=== PATIENT | female | born 1955 | race Caucasian/White ===

== ENCOUNTER 2016-11-13 17:40 | Emergency (ER) | payer MEDICAID ==
--- NOTE | 2016-11-13 17:48 | ER Document Report ---
ED Medical Screen (RME) - General Stated Complaint: DIZZY Notes: elevated blood pressure at home and at urgent care headache, dizzy all day. headacche described as tension ditribution and consistent with her normal headache head CT and carotid doppler due for monday admits to chest pain yesterday lasting all day and resolved on its own I have greeted and performed a rapid initial assessment of this patient. A comprehensive ED assessment and evaluation of the patient, analysis of test results and completion of the medical decision making process will be conducted by additional ED providers. TRAVEL OUTSIDE OF THE [place] IN LAST 30 DAYS: No - Related Data Allergies/Adverse Reactions: cyclobenzaprine HCl [From Flexeril] Allergy (Intermediate, Verified 11/13/16 17: 44) Nausea codeine [Codeine] Adverse Reaction (Intermediate, Verified 11/13/16 17:44) Nausea morphine [Morphine] Adverse Reaction (Intermediate, Verified 11/13/16 17:44) Nausea tramadol HCl [From Ultram] Adverse Reaction (Intermediate, Verified 11/13/16 17: 44) Nausea Past Medical History - Past Medical History Cardiac Medical History: Reports: Hx Coronary Artery Disease, Hx Hypercholesterolemia, Hx Hypertension Denies: Hx Heart Attack Pulmonary Medical History: Denies: Hx Asthma, Hx Bronchitis, Hx COPD, Hx Pneumonia Neurological Medical History: Reports: Hx Cerebrovascular Accident - With right sided weakness. Denies: Hx Seizures Endocrine Medical History: Reports: Hx Diabetes Mellitus Type 2 GI Medical History: Reports: Hx Gastroesophageal Reflux Disease Musculoskeltal Medical History: Denies Hx Arthritis Psychiatric Medical History: Reports: Hx Depression Past Surgical History: Reports: Hx Cardiac Surgery - bypass, Hx Coronary Artery Bypass Graft, Hx Orthopedic Surgery - B TKA,, Hx Thyroid Surgery, Hx Vascular Surgery - Right carotid endarterectomy - Immunizations Hx Diphtheria, Pertussis, Tetanus Vaccination: Yes
--- NOTE | 2016-11-13 19:52 | ER Document Report ---
ED General - General Chief Complaint: High Blood Pressure Stated Complaint: DIZZY Notes: Patient is a 61-year-old female with past medical history of orthostatic hypotension, on medications to raise her blood pressure, chronic headaches, hyperlipidemia who is currently following with both neurology and cardiology for her highly fluctuating blood pressure as well as her chronic daily headaches who presents today with her daughter being concerned about her blood pressure being 150/103 at home. The patient denies any new or different symptoms today. She does note that she has had a dull, throbbing, intermittent bitemporal headache that has been ongoing for the past 2 months. It is not present at the time my assessment. She denies any associated weakness, numbness , altered mental status or vomiting. Nothing seems to improve the headache and it does resolve spontaneously. Nothing triggers the headaches. She is currently following with neurology for these headaches. She denies any chest pain, shortness of breath or pain rating to the arms jaw or back. At the time of my assessment she denies any symptoms at all and states she would like to go home. TRAVEL OUTSIDE OF THE [place] IN LAST 30 DAYS: No - Related Data Allergies/Adverse Reactions: cyclobenzaprine HCl [From Flexeril] Allergy (Intermediate, Verified 11/13/16 17: 44) Nausea codeine [Codeine] Adverse Reaction (Intermediate, Verified 11/13/16 17:44) Nausea morphine [Morphine] Adverse Reaction (Intermediate, Verified 11/13/16 17:44) Nausea tramadol HCl [From Ultram] Adverse Reaction (Intermediate, Verified 11/13/16 17: 44) Nausea Past Medical History - General Information source: Patient - Social History Smoking Status: Never Smoker Chew tobacco use (# tins/day): No Frequency of alcohol use: None Drug Abuse: None Lives with: Family Family History: Reviewed & Not Pertinent Patient has suicidal ideation: No Patient has homicidal ideation: No - Past Medical History Cardiac Medical History: Reports: Hx Coronary Artery Disease, Hx Hypercholesterolemia, Hx Hypertension Denies: Hx Heart Attack Pulmonary Medical History: Denies: Hx Asthma, Hx Bronchitis, Hx COPD, Hx Pneumonia Neurological Medical History: Reports: Hx Cerebrovascular Accident - With right sided weakness. Denies: Hx Seizures Endocrine Medical History: Reports: Hx Diabetes Mellitus Type 2 Renal/ Medical History: Denies: Hx Peritoneal Dialysis GI Medical History: Reports: Hx Gastroesophageal Reflux Disease Musculoskeltal Medical History: Denies Hx Arthritis Psychiatric Medical History: Reports: Hx Depression Past Surgical History: Reports: Hx Cardiac Surgery - bypass, Hx Coronary Artery Bypass Graft, Hx Orthopedic Surgery - B TKA,, Hx Thyroid Surgery, Hx Vascular Surgery - Right carotid endarterectomy - Immunizations Hx Diphtheria, Pertussis, Tetanus Vaccination: Yes Review of Systems - Review of Systems Notes: Constitutional: Negative for fever. HENT: Negative for sore throat. Eyes: Negative for visual changes. Cardiovascular: Negative for chest pain. Respiratory: Negative for shortness of breath. Gastrointestinal: Negative for abdominal pain, vomiting or diarrhea. Genitourinary: Negative for dysuria. Musculoskeletal: Negative for back pain. Skin: Negative for rash. Neurological: Positive for headaches, negative for weakness or numbness. 10 point ROS negative except as marked above and in HPI. Physical Exam - Vital signs Vitals: Resp Pulse Ox 15 98 11/13/16 18:46 11/13/16 18:46 Interpretation: Hypertensive Notes: PHYSICAL EXAMINATION: GENERAL: Well-appearing, well-nourished and in no acute distress. HEAD: Atraumatic, normocephalic. EYES: Pupils equal round and reactive to light, extraocular movements intact, sclera anicteric, conjunctiva are normal. ENT: nares patent, oropharynx clear without exudates. Moist mucous membranes. NECK: Normal range of motion, supple without lymphadenopathy LUNGS: Breath sounds clear to auscultation bilaterally and equal. No wheezes rales or rhonchi. HEART: Regular rate and rhythm without murmurs ABDOMEN: Soft, nontender, normoactive bowel sounds. No guarding, no rebound. No masses appreciated. EXTREMITIES: Normal range of motion, no pitting or edema. No cyanosis. NEUROLOGICAL: Face symmetric. Tongue protrudes midline. Extraocular motions intact. Pupils are 2 mm and equally reactive. Normal speech, normal gait. 5 out of 5 strength in both the distal and proximal upper and lower extremities bilaterally. Sensation is grossly intact throughout. Finger to nose testing normal. Pronator drift normal. PSYCH: Normal mood, normal affect. SKIN: Warm, Dry, normal turgor, no rashes or lesions noted. Course - Re-evaluation Re-evalutation: 11/13/16 19:49 Patient presents with primary concerns regarding her blood pressure reading in the 150s to 170s. Patient has had an intermittent headache for the past several months and is already following with neurology as well as cardiology for her blood pressure. The reason that the patient and her daughter came to the emergency room today was due to her blood pressure being read as 153 systolic at home. Patient here denies any complaints at the time of my assessment. States the headache that she has had is intermittent, bitemporal, and very similar to her prior chest headaches. I do not believe that she has had a subarachnoid hemorrhage, intraparenchymal bleed, or acute meningitis. Therefore we will not proceed with lumbar puncture. I do not believe the CT of the head that was obtained in triage was appropriate as patient does not have clinical symptoms to suggest with the above diagnoses which warrant this test. Chest x-ray was likewise clear although again it is uncertain as to why patient had this test obtained. Patient denies any chest pain and again contrary to triage note states that she is not had chest pain "for at least a week" and denies this complaint at this time. Therefore, I will not proceed with a workup for ACS, pulmonary embolus or aortic dissection as patient is asymptomatic at time of my evaluation. I recommended that she follow-up with her community development aide as well as neurologist regarding today's concerns.At this time will discharge with return precautions and follow-up recommendations. Verbal discharge instructions given a the bedside and opportunity for questions given. Medication warnings reviewed. Patient is in agreement with this plan and has verbalized understanding of return precautions and the need for primary care follow-up in the next 24-72 hours. - Vital Signs Vital signs: Temp Pulse Resp BP Pulse Ox 16 153/85 H 99 11/13/16 19:01 11/13/16 19:01 11/13/16 19:01 - Diagnostic Test Radiology reviewed: Image reviewed, Reports reviewed Radiology results interpreted by me: 11/13/16 19:52 Chest x-ray: No acute infiltrate CT head: No intrarenal bleed - EKG Interpretation by Me Additional EKG results interpreted by me: 11/13/16 19:52 Sinus rhythm. Rate 75. No ST elevations or depressions. QTC is 496. Discharge - Discharge Clinical Impression: Essential hypertension Headache Qualifiers: Headache type: unspecified Headache chronicity pattern: episodic headache Intractability: not intractable Qualified Code(s): R51 - Headache Condition: Good Disposition: HOME, SELF-CARE Additional Instructions: You were seen today for blood pressure that was high. This is a long-term risk factor for multiple medical problems including heart attack and stroke. However, the blood pressure in of itself will not cause you to have an acute stroke or heart attack over the course of just several days or weeks. You need to have a gradual reduction of your blood pressure back to normal levels over the next several months in conjunction with your primary care physician. You may need discuss coming off the medication that you used to raise her blood pressure with your community development aide. Return if you develop a persistent or different type of headache, weakness, numbness, chest pain, pass out, or have any other symptoms that are concerning to you. Referrals: ANDRA HERRING MD [Primary Care Provider] - Follow up as needed
[2016-11-13 20:03] VITALS: BP 153/85
--- NOTE | 2016-11-13 20:47 | EKG REPORT ---
SEVERITY:- ABNORMAL ECG - SINUS RHYTHM NONSPECIFIC T ABNORMALITIES, DIFFUSE LEADS BORDERLINE PROLONGED QT INTERVAL : Confirmed by: Shannan Mccormick MD 13-Nov-2016 20:46:43
== END 2016-11-13 20:04 | disposition home or self-care (01) ==
LOC: ER 17:40
DX: I10 Essential (primary) hypertension (principal); R42 Dizziness and giddiness; R51 Headache; I25.10 Atherosclerotic heart disease of native coronary artery without angina pectoris; E78.00 Pure hypercholesterolemia, unspecified; I69.951 Hemiplegia and hemiparesis following unspecified cerebrovascular disease affecting right dominant side; E11.9 Type 2 diabetes mellitus without complications; Z88.6 Allergy status to analgesic agent; Z95.1 Presence of aortocoronary bypass graft
CPT/HCPCS: 70450; 71020; 93005; 93010; 99284

== ENCOUNTER 2017-06-25 16:21 | Emergency (ER) | payer MEDICAID ==
--- NOTE | 2017-06-25 17:27 | ER Document Report ---
ED Fall - General Chief Complaint: Fall Injury Stated Complaint: FALL/LEG PAIN Time Seen by Provider: 06/25/17 17:05 Mode of Arrival: Wheelchair Information source: Patient Notes: 62-year-old female presents to ED for complaint of pain to her bilateral knees pelvis and lower abdomen. She states she does not know why she fell but she came to on the floor with her daughter and her boyfriend laughing at her she states she fell forward and she hit the lizard cage on the way down. She thinks she might have missed a step but she does not know why she fell. She has a history of coronary bypass surgery and a stroke in the past. She denies any complaint of chest or head pain at this time she denies any nausea or vomiting. Crossing Supervisor are equal patient is able to stand by herself. TRAVEL OUTSIDE OF THE [place] IN LAST 30 DAYS: No - HPI Occurred: Just prior to arrival Where: Home, Indoors Context: Fell from standing Associated symptoms: Difficulty walking, Other - States she does not remember falling but she woke up on the floor. The next sentence she stated that she fell forward hitting the lizard cage. Location of injury/pain: Hip, Knee, Pelvic Quality of pain: Achy, Sharp Severity: Moderate Pain Level: 3 - Related data Allergies/Adverse Reactions: cyclobenzaprine HCl [From Flexeril] Allergy (Intermediate, Verified 11/13/16 17: 44) Nausea codeine [Codeine] Adverse Reaction (Intermediate, Verified 11/13/16 17:44) Nausea morphine [Morphine] Adverse Reaction (Intermediate, Verified 11/13/16 17:44) Nausea tramadol HCl [From Ultram] Adverse Reaction (Intermediate, Verified 11/13/16 17: 44) Nausea Past Medical History - General Information source: Patient - Social History Smoking Status: Never Smoker Cigarette use (# per day): No Chew tobacco use (# tins/day): No Smoking Education Provided: No Frequency of alcohol use: None Drug Abuse: None Lives with: Family Family History: Reviewed & Not Pertinent Patient has suicidal ideation: No Patient has homicidal ideation: No - Past Medical History Cardiac Medical History: Reports: Hx Coronary Artery Disease, Hx Hypercholesterolemia, Hx Hypertension Pulmonary Medical History: Reports: None EENT Medical History: Reports: None Neurological Medical History: Reports: Hx Cerebrovascular Accident - With right sided weakness Endocrine Medical History: Reports: Hx Diabetes Mellitus Type 2 Renal/ Medical History: Reports: None Malignancy Medical History: Reports: None GI Medical History: Reports: Hx Gastroesophageal Reflux Disease Musculoskeltal Medical History: Reports Hx Musculoskeletal Deformity, Reports Hx Musculoskeletal Trauma Skin Medical History: Reports None Psychiatric Medical History: Reports: Hx Depression Traumatic Medical History: Reports: None Infectious Medical History: Reports: None Past Surgical History: Reports: Hx Cardiac Surgery - bypass, Hx Coronary Artery Bypass Graft, Hx Orthopedic Surgery - B TKA,, Hx Thyroid Surgery, Hx Vascular Surgery - Right carotid endarterectomy - Immunizations Hx Diphtheria, Pertussis, Tetanus Vaccination: Yes Review of Systems - Review of Systems Constitutional: No symptoms reported EENT: No symptoms reported Cardiovascular: No symptoms reported Respiratory: No symptoms reported Gastrointestinal: Abdominal pain Genitourinary: No symptoms reported Female Genitourinary: No symptoms reported Musculoskeletal: Joint pain - bilateral knee pain, hip pain Skin: No symptoms reported Hematologic/Lymphatic: No symptoms reported Neurological/Psychological: Lost consciousness - Thanks she does not know if she lost consciousness or not she does not remember the fall but she woke up on the floor with her daughter and her boyfriend laughing at her -: Yes All other systems reviewed and negative Physical Exam - Vital signs Vitals: Temp Pulse Resp BP Pulse Ox 97.7 F 73 20 108/56 L 98 06/25/17 16:29 06/25/17 16:29 06/25/17 16:29 06/25/17 16:29 06/25/17 16:29 Interpretation: Normal - General General appearance: Appears well, Alert - HEENT Head: Normocephalic, Atraumatic Eyes: Normal Pupils: PERRL - Respiratory Respiratory status: No respiratory distress Chest status: Nontender Breath sounds: Normal Chest palpation: Normal - Cardiovascular Rhythm: Regular Heart sounds: Normal auscultation Murmur: No - Abdominal Inspection: Normal Distension: No distension Bowel sounds: Normal Tenderness: Tender - Suprapubic and pelvic area Organomegaly: No organomegaly - Back Back: Normal, Nontender - Extremities General upper extremity: Normal inspection, Nontender, Normal color, Normal ROM , Normal temperature General lower extremity: Normal color, Normal ROM, Normal temperature, Normal weight bearing. No: Major's sign Hip: Tender. No: Abrasion, Deformity, Dislocation, Ecchymosis, Instability, Laceration, Pain with ROM, Unable to bear weight Knee: Tender, Pain with ROM, Patellar tendon intact, Tender joint line, Other - Cars to both knees. No: Abrasion, Deformity, Dislocation, Drawer's test instability, Ecchymosis, Instability, Joint effusion, Laxity with varus stress, Popliteal fossa tender, Unable to bear weight - Neurological Neuro grossly intact: Yes Cognition: Normal Orientation: AAOx4 [place] Coma Scale Eye Opening: Spontaneous [place] Coma Scale Verbal: Oriented [place] Coma Scale Motor: Obeys Commands [place] Coma Scale Total: 15 Speech: Normal Motor strength normal: LUE, RUE, LLE, RLE Sensory: Normal - Psychological Associated symptoms: Normal affect, Normal mood - Skin Skin Temperature: Warm Skin Moisture: Dry Skin Color: Normal Course - Re-evaluation Re-evalutation: 06/25/17 18:[address] Discussed x-ray CT and labs with patient and written reports given the patient to follow-up with her primary doctor. There are no acute changes on x-rays or CTs. She has some small nonobstructing kidney stones bilateral, she has gallstones with no signs of cholecystitis and no upper abdominal pain no nausea and vomiting. She has no changes on her head CT or on either knee x-ray. Her urine does not show any signs of a urinary tract infection. Her chemistry is within normal limits except for her glucose was a little elevated. She will be discharged home with some Tylenol and instructions to follow-up with her primary doctor. Her daughter has been called and informed that she is ready to go home. - Vital Signs Vital signs: Temp Pulse Resp BP Pulse Ox 97.7 F 73 20 108/56 L 98 06/25/17 16:29 06/25/17 16:29 06/25/17 16:29 06/25/17 16:29 06/25/17 16:29 - Laboratory Result Diagrams: 06/25/17 17:25 06/25/17 17:25 Laboratory results interpreted by me: 06/25/17 06/25/17 17:25 17:25 RBC 3.17 L Hgb 10.0 L Hct 29.1 L Est GFR (Non-Af Amer) 49 L Glucose 132 H - Diagnostic Test Radiology reviewed: Image reviewed, Reports reviewed Discharge - Discharge Clinical Impression: Contusion of knee with skin surface intact, Pelvic pain in female Fall Qualifiers: Encounter type: initial encounter Qualified Code(s): W19.XXXA - Unspecified fall, initial encounter Condition: Stable Disposition: HOME, SELF-CARE Additional Instructions: CONTUSION: Your injury has resulted in a contusion -- a crushing of the deep tissues. No injury to important structures was detected during the physician's exam. Contusions vary in the amount of pain they cause, and in the length of time required for healing. Typically, the area will become bruised, and will remain painful to touch for two or three weeks. However, most patients are back to working and playing within a few days. After the initial period of rest and cold-packs, your symptoms (together with the doctor's recommendations) will determine how rapidly you can get back to full activity. Usually this means "do what feels okay, but don't do things that hurt." If re-examination was recommended, it's important to follow up as instructed. Call the doctor or return any time if pain increases, if swelling becomes severe, if you develop numbness or weakness in an injured extremity, or if any other alarming symptoms occur. Kidney Stone You have a nonobstructing in the stone that is not causing you any problems at this time he will need to follow-up with your primary doctor concerning this to monitor this. You also have gallstones that are not causing you any problem at this time. You denied any pain in this area. You have denied any nausea and vomiting at this time. You will need to follow-up with your primary doctor to monitor this condition. Your x-rays do not show any other acute abnormalities at this time. I have given you a copy of your CAT scans of your head and abdomen and your x-rays of your knees. Please take your lab results as well as your CT and x-rays with you to your next follow-up appointment with your primary doctor. Please be cautious when walking around in the house and do not trip over the step and hit the lizard cage. USE OF TYLENOL (ACETAMINOPHEN): Acetaminophen may be taken for pain relief or fever control. It's much safer than aspirin, offering a wider range of "safe" dosages. It is safe during . Some brand names are Tylenol, Panadol, Datril, Anacin 3, Tempra, and Liquiprin. Acetaminophen can be repeated every four hours. The following are maximum recommended dosages: WEIGHT Dose Drops Elixir Chewable( 80mg) (LBS.) drprs=droppers tsp=teaspoon 6 40 mg 0.4 ml (1/2) 6-11 80 mg 0.8 ml (full) tsp 1 tab 12-16 120 mg 1 1/2 drprs 3/4 tsp 1 1/2 tabs 17-23 160 mg 2 drprs 1 tsp 2 tabs 24-30 240 mg 3 drprs 1 1/2 tsp 3 tabs 30-35 320 mg 2 tsp 4 tabs 36-41 360 mg 2 1/4 tsp 4 1/2 tabs 42-47 400 mg 2 1/2 tsp 5 tabs 48-53 480 mg 3 tsp 6 tabs 54-59 520 mg 3 1/4 tsp 6 1/2 tabs 60-64 560 mg 3 1/2 tsp 7 tabs 65-70 600 mg 3 3/4 tsp 7 1/2 tabs 71-76 640 mg 4 tsp 8 tabs 77-82 720 mg 4 1/2 tsp 9 tabs 83-88 800 mg 5 tsp 10 tabs >89 pounds or adults 650 mg to 900 mg Acetaminophen can be repeated every four hours. Maximum dose not to exceed 4000 mg a day. These maximum recommended dosages are slightly higher than the dosages written on the product container, but these dosages are very safe and below the toxic dosage for acetaminophen. FOLLOW-UP CARE: If you have been referred to a physician for follow-up care, call the physician s office for an appointment as you were instructed or within the next two days. If you experience worsening or a significant change in your symptoms, notify the physician immediately or return to the Emergency Department at any time for re-evaluation. Referrals: JULIAN RODRÍGUEZ PA-C [Primary Care Provider] - Follow up as needed
[2017-06-25 17:34] LABS: ABSOLUTE EOSINOPHILS # (AUTO) 0.3 10^3/uL (0.0-0.6); ABSOLUTE LYMPHOCYTES (AUTO) 1.6 10^3/uL (0.5-4.7); ABSOLUTE MONOCYTES (AUTO) 0.5 10^3/uL (0.1-1.4); ABSOLUTE NEUT (AUTO) 5.1 10^3/uL (1.7-8.2); BASOPHILS % (AUTO) 0.5 % (0-2); EOSINOPHILS % (AUTO) 4.3 % (0-6); HEMATOCRIT 29.1 % (36.0-47.0); HGB HCT DIFFERENCE 0.9; LYMPHOCYTES % (AUTO) 20.9 % (13-45); MEAN CORPUSCULAR HEMOGLOBIN 31.7 pg (27.0-33.4); MEAN CORPUSCULAR HGB CONC 34.6 g/dL (32.0-36.0); MEAN CORPUSCULAR VOLUME 92 fl (80-97); MONOCYTES % (AUTO) 7.1 % (3-13); RED BLOOD COUNT 3.17 10^6/uL (3.72-5.28); RED CELL DISTRIBUTION WIDTH 13.5 % (11.5-14.0); SEGMENTED NEUTROPHILS % (AUTO) 67.2 % (42-78); WHITE BLOOD COUNT 7.6 10^3/uL (4.0-10.5)
[2017-06-25 17:55] LABS: ALANINE AMINOTRANSFERASE 47 U/L (9-52); ALBUMIN 4.3 g/dL (3.5-5.0); ALKALINE PHOSPHATASE 61 U/L (38-126); ANION GAP 12 (5-19); ASPARTATE AMINO TRANSFERASE 30 U/L (14-36); BILIRUBIN,DIRECT 0.4 mg/dL (0.0-0.4); BILIRUBIN,TOTAL 0.5 mg/dL (0.2-1.3); BLOOD UREA NITROGEN 20 mg/dL (7-20); CALCIUM 9.5 mg/dL (8.4-10.2); CARBON DIOXIDE 28 mmol/L (22-30); CHLORIDE 103 mmol/L (98-107); CREATININE RESULT 1.12 mg/dL (0.52-1.25); GLUCOSE 132 mg/dL (75-110); POTASSIUM 4.4 mmol/L (3.6-5.0); SODIUM 142.8 mmol/L (137-145)
[2017-06-25 18:04] LABS: APPEARANCE,URINE CLEAR; BILIRUBIN,URINE NEGATIVE (NEGATIVE); GLUCOSE, URINE NEGATIVE (NEGATIVE); KETONES,URINE NEGATIVE (NEGATIVE); LEUKOCYTE ESTERASE,URINE NEGATIVE (NEGATIVE); NITRITE,URINE NEGATIVE (NEGATIVE); PROTEIN,URINE NEGATIVE (NEGATIVE); URINE SPECIFIC GRAVITY 1.008; UROBILINOGEN,URINE NEGATIVE mg/dL (<2.0)
--- NOTE | 2017-06-25 18:22 | RADIOLOGY REPORT (SQ) ---
EXAM DESCRIPTION: CT HEAD WITHOUT COMPLETED DATE/TIME: 06/25/2017 6:08 pm REASON FOR STUDY: fall states does not remember why COMPARISON: 11/13/2016. TECHNIQUE: Axial images acquired through the brain without intravenous contrast. Images reviewed wi th bone, brain and subdural windows. Images stored on PACS. All CT scanners at this facility use dose modulation, iterative reconstruction, and/or weight based d osing when appropriate to reduce radiation dose to as low as reasonably achievable (ALARA). [facility]: Dose Right [facility]: CareDose [facility]: Dose Right [facility]: Teradose 4D [facility]: [facility] RADIATION DOSE: Up-to-date CT equipment and radiation dose reduction techniques were employed. CTDIv ol: 64.6 mGy. DLP: 1163 mGy-cm.mGy. LIMITATIONS: None. FINDINGS: VENTRICLES: Prominent. CEREBRUM: No masses. No hemorrhage. No midline shift. Areas of low density in the white matter mos t likely due to chronic micro-vascular ischemic change. Old infarct in the left cerebral hemisphere with prominent encephalomalacia. No evidence for acute infarction. CEREBELLUM: No masses. No hemorrhage. No alteration of density. No evidence for acute infarction. EXTRAAXIAL SPACES: Age-related involutional change. No fluid collections. No masses. ORBITS AND GLOBE: No intra- or extraconal masses. Normal contour of globe without masses. CALVARIUM: No fracture. PARANASAL SINUSES: No fluid or mucosal thickening. SOFT TISSUES: No mass or hematoma. OTHER: No other significant finding. IMPRESSION: CHRONIC CHANGES OF ATROPHY AND MICROVASCULAR ISCHEMIA. OLD INFARCT IN THE LEFT CEREBRAL HEMISPHERE. NO ACUTE PROCESS. EVIDENCE OF ACUTE STROKE: NO. TECHNICAL DOCUMENTATION: JOB ID: [id number] Quality ID # [id number]: Final reports with documentation of one or more dose reduction techniques (e.g., Au tomated exposure control, adjustment of the mA and/or kV according to patient size, use of iterative reconstruction technique) 2010 [email or web address]- All Rights Reserved
--- NOTE | 2017-06-25 18:22 | RADIOLOGY REPORT (SQ) ---
EXAM DESCRIPTION: KNEE LEFT 4 VIEW COMPLETED DATE/TIME: 06/25/2017 6:08 pm REASON FOR STUDY: fall pain knee pelvic and abdomen COMPARISON: None. NUMBER OF VIEWS: Four views. TECHNIQUE: AP, lateral, and both oblique radiographic images acquired of the left knee. LIMITATIONS: None. FINDINGS: MINERALIZATION: Normal. BONES: No acute fracture or dislocation. Intact knee prosthesis. No worrisome bone lesions. JOINT: No effusion. SOFT TISSUES: No soft tissue swelling. No radio-opaque foreign body. OTHER: No other significant finding. IMPRESSION: INTACT KNEE PROSTHESIS. NO RADIOGRAPHIC EVIDENCE OF ACUTE INJURY. TECHNICAL DOCUMENTATION: JOB ID: [id number] [email or web address]- All Rights Reserved
--- NOTE | 2017-06-25 18:23 | RADIOLOGY REPORT (SQ) ---
EXAM DESCRIPTION: KNEE RIGHT 4 VIEWS COMPLETED DATE/TIME: 06/25/2017 6:08 pm REASON FOR STUDY: fall pain knee pelvic and abdomen COMPARISON: None. NUMBER OF VIEWS: Four views. TECHNIQUE: AP, lateral, and both oblique radiographic images acquired of the right knee. LIMITATIONS: None. FINDINGS: MINERALIZATION: Normal. BONES: No acute fracture or dislocation. Intact knee prosthesis. No worrisome bone lesions. JOINT: No effusion. SOFT TISSUES: No soft tissue swelling. No radio-opaque foreign body. OTHER: No other significant finding. IMPRESSION: INTACT KNEE PROSTHESIS. NO RADIOGRAPHIC EVIDENCE OF ACUTE INJURY. TECHNICAL DOCUMENTATION: JOB ID: [id number] [email or web address]- All Rights Reserved
--- NOTE | 2017-06-25 18:38 | RADIOLOGY REPORT (SQ) ---
EXAM DESCRIPTION: CT ABD/PELVIS NO ORAL OR IV COMPLETED DATE/TIME: 06/25/2017 6:08 pm REASON FOR STUDY: fall pain knee pelvic and abdomen COMPARISON: None. TECHNIQUE: CT scan of the abdomen and pelvis performed without intravenous or oral contrast. Images reviewed with lung, soft tissue, and bone windows. Reconstructed coronal and sagittal MPR images revi ewed. All images stored on PACS. All CT scanners at this facility use dose modulation, iterative reconstruction, and/or weight based d osing when appropriate to reduce radiation dose to as low as reasonably achievable (ALARA). [facility]: Dose Right [facility]: CareDose [facility]: Dose Right [facility]: Teradose 4D [facility]: Smart [employer] RADIATION DOSE: Up-to-date CT equipment and radiation dose reduction techniques were employed. CTDIv ol: 14.4 mGy. DLP: 785 mGy-cm.mGy. LIMITATIONS: None. FINDINGS: LOWER CHEST: No significant findings. No nodules or infiltrates. NON-CONTRASTED LIVER, SPLEEN, ADRENALS: Evaluation limited by lack of IV contrast. No identified sign ificant masses. PANCREAS: No masses. No peripancreatic inflammatory changes. GALLBLADDER: Gallstones. No inflammatory changes to suggest cholecystitis. RIGHT KIDNEY AND URETER: No suspicious masses. Assessment limited by lack of IV contrast. Tiny gt ceal calculus. No hydronephrosis or hydroureter. LEFT KIDNEY AND URETER: No suspicious masses. Assessment limited by lack of IV contrast. Tiny calyc eal calculus. No hydronephrosis or hydroureter. AORTA AND RETROPERITONEUM: No aneurysm. No retroperitoneal masses or adenopathy. BOWEL AND PERITONEAL CAVITY: No obvious masses or inflammatory changes. No free fluid. APPENDIX: Not visualized. PELVIS, BLADDER, AND ABDOMINAL WALL:No abnormal masses. No free fluid. Bladder normal. BONES: No significant findings. OTHER: No other significant finding. IMPRESSION: 1. GALLSTONES. NO EVIDENCE OF CHOLECYSTITIS. 2. TINY NONOBSTRUCTING CALYCEAL CALCULI IN BOTH KIDNEYS. 3. NO OTHER SIGNIFICANT OR ACUTE PROCESS IN THE ABDOMEN OR PELVIS. COMMENT: Quality ID # [id number]: Final reports with documentation of one or more dose reduction techniques (e.g., Automated exposure control, adjustment of the mA and/or kV according to patient size, use of iterative reconstruction technique) TECHNICAL DOCUMENTATION: JOB ID: [id number] [employer]- All Rights Reserved
[2017-06-25 19:04] VITALS: BP 110/62
== END 2017-06-25 19:04 | disposition home or self-care (01) ==
LOC: ER 16:21
DX: S80.00XA Contusion of unspecified knee, initial encounter (principal); W10.9XXA Fall (on) (from) unspecified stairs and steps, initial encounter; Y92.009 Unspecified place in unspecified non-institutional (private) residence as the place of occurrence of the external cause; M25.561 Pain in right knee; M25.562 Pain in left knee; R10.2 Pelvic and perineal pain; M25.559 Pain in unspecified hip; R41.3 Other amnesia; N20.0 Calculus of kidney; K80.20 Calculus of gallbladder without cholecystitis without obstruction; I25.10 Atherosclerotic heart disease of native coronary artery without angina pectoris; I10 Essential (primary) hypertension; E11.9 Type 2 diabetes mellitus without complications; Z96.653 Presence of artificial knee joint, bilateral; Z86.73 Personal history of transient ischemic attack (TIA), and cerebral infarction without residual deficits; Z95.1 Presence of aortocoronary bypass graft; Z88.8 Allergy status to other drugs, medicaments and biological substances
CPT/HCPCS: 36415; 51701; 70450; 74176; 80053; 81001; 85025; 99284

== ENCOUNTER → 2017-07-25 | Outpatient (CLI) | payer MEDICAID ==
[2017-07-25 09:19] LABS: ABSOLUTE EOSINOPHILS # (AUTO) 0.3 10^3/uL (0.0-0.6); ABSOLUTE LYMPHOCYTES (AUTO) 1.4 10^3/uL (0.5-4.7); ABSOLUTE MONOCYTES (AUTO) 0.4 10^3/uL (0.1-1.4); ABSOLUTE NEUT (AUTO) 3.3 10^3/uL (1.7-8.2); BASOPHILS % (AUTO) 0.8 % (0-2); EOSINOPHILS % (AUTO) 5.8 % (0-6); HEMATOCRIT 30.6 % (36.0-47.0); HEMOGLOBIN 10.5 g/dL (12.0-15.5); HGB HCT DIFFERENCE 0.9; MEAN CORPUSCULAR HEMOGLOBIN 31.1 pg (27.0-33.4); MEAN CORPUSCULAR HGB CONC 34.3 g/dL (32.0-36.0); MEAN CORPUSCULAR VOLUME 91 fl (80-97); MONOCYTES % (AUTO) 6.5 % (3-13); RED BLOOD COUNT 3.38 10^6/uL (3.72-5.28); RED CELL DISTRIBUTION WIDTH 13.5 % (11.5-14.0); SEGMENTED NEUTROPHILS % (AUTO) 60.9 % (42-78); WHITE BLOOD COUNT 5.5 10^3/uL (4.0-10.5)
--- NOTE | 2017-07-25 09:40 | RADIOLOGY REPORT (SQ) ---
EXAM DESCRIPTION: CHEST PA/LATERAL COMPLETED DATE/TIME: 07/25/2017 9:15 am REASON FOR STUDY: PRE-OP COMPARISON: Chest films 01/19/2015, 01/23/2016, 11/13/2016 CT angio chest 11/15/2007 EXAM PARAMETERS: NUMBER OF VIEWS: two views TECHNIQUE: Digital Frontal and Lateral radiographic views of the chest acquired. RADIATION DOSE: NA LIMITATIONS: none FINDINGS: LUNGS AND PLEURA: No opacities, masses or pneumothorax. No pleural effusion. MEDIASTINUM AND HILAR STRUCTURES: No masses or contour abnormalities. HEART AND VASCULAR STRUCTURES: Heart normal size. No evidence for failure. BONES: Old sternotomy for CABG. HARDWARE: None in the chest. OTHER: No other significant finding. IMPRESSION: NO SIGNIFICANT RADIOGRAPHIC FINDING IN THE CHEST. TECHNICAL DOCUMENTATION: JOB ID: [id number] [employer]- All Rights Reserved
[2017-07-25 09:48] LABS: ANION GAP 11 (5-19); BLOOD UREA NITROGEN 15 mg/dL (7-20); CALCIUM 9.6 mg/dL (8.4-10.2); CARBON DIOXIDE 29 mmol/L (22-30); CHLORIDE 105 mmol/L (98-107); CREATININE RESULT 0.89 mg/dL (0.52-1.25); GLUCOSE 104 mg/dL (75-110); POTASSIUM 4.5 mmol/L (3.6-5.0); SODIUM 144.9 mmol/L (137-145)
[2017-07-25 10:40] LABS: APPEARANCE,URINE CLEAR; BILIRUBIN,URINE NEGATIVE (NEGATIVE); GLUCOSE, URINE NEGATIVE (NEGATIVE); KETONES,URINE NEGATIVE (NEGATIVE); LEUKOCYTE ESTERASE,URINE NEGATIVE (NEGATIVE); NITRITE,URINE NEGATIVE (NEGATIVE); PROTEIN,URINE NEGATIVE (NEGATIVE); URINE SPECIFIC GRAVITY 1.008; UROBILINOGEN,URINE NEGATIVE mg/dL (<2.0)
--- NOTE | 2017-07-25 13:41 | EKG REPORT ---
SEVERITY:- NORMAL ECG - SINUS RHYTHM : Confirmed by: Capo Butterfield MD 25-Jul-2017 13:39:56
== END ==
LOC: OD 08:17
PROVIDERS: ATTEND Orthopaedic Surgery
DX: Z01.818 Encounter for other preprocedural examination (principal)
CPT/HCPCS: 36415; 71020; 80048; 81001; 83036; 85025; 93005; 93010

== ENCOUNTER 2017-08-10 10:46 | Day surgery (SDC) | payer MEDICAID ==
[~2017-08-10 10:46] MED LIST: CEFAZOLIN 2 GM/D5W RTU 2 GM/50 ML RTUPB IV PRN; GLYCOPYRROLATE INJ 0.4 MG/2 ML VIAL ONE; LIDOCAINE 0.5% INJ-PF (5 MG/ML) 50 ML SDV SUBCUT PRN; NORMAL SALINE 1000 ML 1,000 ML IV PRN; ROCURONIUM BROMIDE INJ 50 MG/5 ML VIAL IV ONE; SUCCINYLCHOLINE CHLORIDE INJ 200 MG/10 ML VIAL ONE
[2017-08-10] MEDS ORDERED: BUPIVACAINE HCL 0.5 % INJ/PF 30 ML SDV ONE ×2 (10:47→16:32)
[2017-08-10] MEDS ORDERED: EPINEPHRINE INJ/PF 1 MG/1 ML AMPULE ONE (10:47)
[2017-08-10] MEDS ORDERED: FENTANYL CITRATE INJ/PF 100 MCG/2 ML AMPUL ONE (13:46)
[2017-08-10] MEDS ORDERED: MIDAZOLAM 2 MG/2 ML INJ ONE (13:47)
[2017-08-10] MEDS ORDERED: ONDANSETRON HCL INJ/PF 4 MG/2 ML SDV ONE (13:47)
[2017-08-10] MEDS ORDERED: HYDROMORPHONE HCL INJ/PF 2 MG/ML AMPULE ONE (13:47)
[2017-08-10] MEDS ORDERED: PROPOFOL INJ 200 MG/20 ML VIAL IV ONE (13:47)
[2017-08-10] MEDS ORDERED: DEXAMETHASONE SOD PHOSPHATE INJ 4 MG/1 ML VIAL ONE (13:47)
[2017-08-10] MEDS ORDERED: ACETAMINOPHEN 100 ML IV ONE (13:48)
[2017-08-10] MEDS ORDERED: MEPERIDINE HCL/PF INJ 25 MG/1 ML DISP.SYRIN IV PRN (15:31)
[2017-08-10] MEDS ORDERED: OXYCODONE-ACETAMINOPHEN 5-325 MG TABLET PO PRN ×4 (15:31→16:46)
[2017-08-10] MEDS ORDERED: PROMETHAZINE HCL INJ 25 MG/1 ML VIAL IV PRN ×2 (15:31)
[2017-08-10] MEDS ORDERED: DIPHENHYDRAMINE HCL 50 MG/ML VIAL IV PRN (15:31)
[2017-08-10] MEDS ORDERED: FENTANYL CITRATE INJ/PF 100 MCG/2 ML AMPUL IV PRN ×3 (15:31)
--- NOTE | 2017-08-10 16:44 | Operative Report ---
Operative Report DATE OF SURGERY: 08/10/17 PREOPERATIVE DIAGNOSIS: Right shoulder rotator cuff tear and subluxing biceps POSTOPERATIVE DIAGNOSIS: same OPERATION: Right shoulder arthroscopic rotator cuff repair and biceps tenodesis SURGEON: LUCA HIGHTOWER ANESTHESIA: GA TISSUE REMOVED OR ALTERED: Portion of the long head of the biceps COMPLICATIONS: None ESTIMATED BLOOD LOSS: Less than 20 mL INTRAOPERATIVE FINDINGS: As above PROCEDURE: IMPLANTS: 5.5 by composite corkscrews 2. DESCRIPTION OF PROCEDURE: Patient was brought to the operating room placed in supine position. After successfully induced and intubated the patient patient was placed in the beachchair position the head and endotracheal tube was secured appropriately. The right shoulder was prepped and draped in a normal surgical fashion. A timeout was done identifying the right shoulder as the correct site. After inflating the glenohumeral joint with sterile saline solution an 11 blade was used to establish the posterior portal. The arthroscope was introduced and return of fluid was seen showing that we successfully penetrated the glenohumeral joint. With the use of spinal needle we're able to fatmata the anterior portal and using an 11 blade able to establish anterior portal. A cannula was introduced through the anterior portal. At this point diagnostic scope was done. Patient had a type II SLAP tear with subluxing of the long head of the biceps. Also had partial tearing of the biceps on the surface rubbing against the humeral head. Patient had a full- thickness tear of the supraspinatus and portion of the infraspinatus. A lateral portal was established 11 blade. 4.0mm shaver was introduced and was used to prepare the tear and the frontal bone for preparation of anchor placement. Once I was satisfied with the preparation I then redirected my scope into the subacromial space. After doing a formal bursectomy was able to expose the rotator cuff tear. A percutaneous incision was then just adjacent to the acromion on the lateral aspect. Through this percutaneous hole the awl was used to prepare the hole for an anchor. [place] was percutaneously sent flushed with the bone just adjacent to the articular margin.[Same steps were taken for placement of our second anchor more posteriorly. Sutures were passed through the anterior portal for proper suture management. With the use of the scorpion and I proceeded to pass the sutures through the rotator cuff tendon with proper suture management was able to pass the strands either through percutaneous hole or the anterior portal. Once I was satisfied with placement of all my sutures I then proceeded to do my arthroscopic knots. At this point the strands were used to do our lateral row. Bicomposite show out was used and the lateral aspect of the humerus was then cleaned off with a shaver and electrocautery. Once identified once I was placement I proceeded to use my awl to do my hole. I was successful to place 1 of my swivel locks with some of the strands do a lateral row. My posterior swivel lock did not take and despite placing the anchor sutures were loose and I needed to proceed to use arthroscopic cutters to cut thumb and leave a small limb. Remaining strands were cut with the arthroscopic cutter. Final pictures were taking showing my repair. At this point fluid from the shoulder was removed camera and instruments were all removed. I proceeded to do my subpectoralis biceps tenodesis by doing a 1 inch incision just adjacent to the deltopectoral aspect of the anterior shoulder. Dissection was done bluntly with a Metzenbaum scissors and after splitting the fascial tissue overlying the biceps was able to put the biceps in the bicipital groove and pull it out of my incision with a 90 clamp. I proceeded to use fiber loop to secure 2 cm at the musculotendinous junction and tendon. The remaining tendon was cut. I used a 4 mm spade tip guidepin to drill into the bone after placing small Homans to expose the humerus and base of the bicipital groove. I left the pin inside the canal and passed the 2 limbs of the Fiber[employer] through the blind once I secured and since the button down I pulled the spade tip guidepin and placed my button inside the medullary canal and flipped it and secured the biceps onto the face of the humerus. I did half hitch knots to try and secure it further. I used black candle scissors to cut and leave the limb. I used 0 Vicryl to approximate the subcutaneous tissue 2-0 Vicryl to approximate the dermis and 3-0 nylon for the skin I proceeded to close my portal sites with 3-0 nylon. Xeroform 4 x 4 dressing followed by ABDs pads and Medipore tape was applied. Patient was placed in a sling and returned to supine position where he was successfully extubated and taken to PACU in stable condition.
--- NOTE | 2017-08-10 16:46 | PDOC DISCHARGE SUMMARY ---
Discharge Summary (SDC) - Discharge Final Diagnosis: Status post right shoulder rotator cuff repair and subpectoralis biceps tenodesis Date of Surgery: 08/10/17 Discharge Date: 08/10/17 Condition: Good Treatment or Instructions: Patient is instructed to follow up in 10-14 days. Patient instructed to remove dressing in 4 days then can shower and apply Band- Aids as needed. Patient to wear sling for comfort but okay to remove for shower and pendulum exercises. Pendulum exercises are instructed to be done 3 times a day ideally with breakfast, lunch, dinners and showers. Patient instructed to call if there is any signs of redness or drainage fevers or chills. Prescriptions: Oxycodone HCl/Acetaminophen [Percocet 5-325 mg Tablet] 1 - 2 tab PO ASDIR PRN # 60 tablet PRN Reason: Referrals: JULIAN RODRÍGUEZ PA-C [Primary Care Provider] - Respiratory Treatments at Home: Deep Breathing/Coughing Discharge Activity: No Lifting/Push/Pulling, Walk Frequently - Patient Report the Following to Your Physician Immediately: Shortness of Breath, Vomiting, Increase in Pain, Fever over 101 Degrees, Unusual Bleeding, Redness, Swelling, Warmth, Increased Soreness, Drainage-Yellow - E, Drainage-Kirby - 1, Drainage-Green
[2017-08-10 19:55] VITALS: BP 107/58
== END 2017-08-10 19:30 | disposition home or self-care (01) ==
LOC: OROUT 10:46
PROVIDERS: ATTEND Orthopaedic Surgery
PROC: 0LM14ZZ Reattachment of Right Shoulder Tendon, Percutaneous Endoscopic Approach (ICD-10-PCS; 2017-08-10)
PROC: 0LM30ZZ Reattachment of Right Upper Arm Tendon, Open Approach (ICD-10-PCS; principal; 2017-08-10 12:30)
DX: S43.39 Subluxation and dislocation of other parts of shoulder girdle (principal); S43.431D Superior glenoid labrum lesion of right shoulder, subsequent encounter; X58.XXXD Exposure to other specified factors, subsequent encounter; M75.122 Complete rotator cuff tear or rupture of left shoulder, not specified as traumatic; E78.5 Hyperlipidemia, unspecified; I10 Essential (primary) hypertension; E11.9 Type 2 diabetes mellitus without complications; I20.9 Angina pectoris, unspecified; R01.1 Cardiac murmur, unspecified; D64.9 Anemia, unspecified; Z79.899 Other long term (current) drug therapy; Z88.5 Allergy status to narcotic agent; Z86.73 Personal history of transient ischemic attack (TIA), and cerebral infarction without residual deficits
CPT/HCPCS: 24340; 36415; 82962; 29827; C1713 ×2; J2250; J3490 ×2; J1100; J0171; J3010; J1170; J0330; J2405; J2704; J0690; J0131; 1630

== ENCOUNTER 2017-11-26 06:33 | Observation (INO) | payer MEDICAID ==
[2017-11-26] MEDS ORDERED: NORMAL SALINE 500 ML IV ONE (06:58)
[2017-11-26 07:12] LABS: ABSOLUTE EOSINOPHILS # (AUTO) 0.4 10^3/uL (0.0-0.6); ABSOLUTE LYMPHOCYTES (AUTO) 1.6 10^3/uL (0.5-4.7); ABSOLUTE MONOCYTES (AUTO) 0.6 10^3/uL (0.1-1.4); ABSOLUTE NEUT (AUTO) 7.9 10^3/uL (1.7-8.2); BASOPHILS % (AUTO) 0.4 % (0-2); EOSINOPHILS % (AUTO) 3.4 % (0-6); HEMATOCRIT 35.5 % (36.0-47.0); HEMOGLOBIN 11.8 g/dL (12.0-15.5); LYMPHOCYTES % (AUTO) 15.3 % (13-45); MEAN CORPUSCULAR HEMOGLOBIN 30.4 pg (27.0-33.4); MEAN CORPUSCULAR HGB CONC 33.1 g/dL (32.0-36.0); MEAN CORPUSCULAR VOLUME 92 fl (80-97); MONOCYTES % (AUTO) 5.3 % (3-13); PLATELET COUNT 234 10^3/uL (150-450); RED BLOOD COUNT 3.87 10^6/uL (3.72-5.28); RED CELL DISTRIBUTION WIDTH 13.7 % (11.5-14.0); SEGMENTED NEUTROPHILS % (AUTO) 75.6 % (42-78); TOTAL CELLS COUNTED % (AUTO) 100 %; WHITE BLOOD COUNT 10.5 10^3/uL (4.0-10.5)
[2017-11-26 07:18] LABS: INTERNATIONAL RATION (INR) 0.88; PARTIAL THROMBOPLASTIN TIME 27.1 SEC (23.5-35.8); PROTHROMBIN TIME 12.6 SEC (11.4-15.4)
[2017-11-26 07:20] LABS: ALANINE AMINOTRANSFERASE 25 U/L (9-52); ALBUMIN 4.3 g/dL (3.5-5.0); ALKALINE PHOSPHATASE 63 U/L (38-126); ANION GAP 11 (5-19); ASPARTATE AMINO TRANSFERASE 25 U/L (14-36); BILIRUBIN,DIRECT 0.2 mg/dL (0.0-0.4); BILIRUBIN,TOTAL 0.5 mg/dL (0.2-1.3); BLOOD UREA NITROGEN 26 mg/dL (7-20); CALCIUM 9.7 mg/dL (8.4-10.2); CARBON DIOXIDE 30 mmol/L (22-30); CHLORIDE 105 mmol/L (98-107); CREATINE KINASE 137 U/L (30-135); GLUCOSE 165 mg/dL (75-110); POTASSIUM 4.2 mmol/L (3.6-5.0); TOTAL PROTEIN 7.1 g/dL (6.3-8.2)
[2017-11-26 07:23] LABS: ALCOHOL < 10 mg/dL (NONE DETECTED)
--- NOTE | 2017-11-26 07:23 | ER Document Report ---
ED General - General Chief Complaint: S/S of Possible Stroke Stated Complaint: STROKE LIKE SYMPTONS Time Seen by Provider: 11/26/17 06:57 Mode of Arrival: Medic Information source: Patient, Relative Notes: 62-year-old female with a history of hypertension, hyperlipidemia, diabetes, previous CVA in 2006, coronary artery disease requiring CABG, depression presents via EMS from home after the daughter found her mother confused this morning at 5 AM 2 hours prior to arrival. Per the daughter the mother was stating that she fed the dogs and was waiting for them to come in. The daughter states all the dogs were in their kennel. Daughter thought that the patient's speech was more slurred than normal. Daughter does state that patient has episodes of confusion secondary to her previous stroke. Previous stroke left her with right-sided weakness. Currently the patient denies any headache, visual changes, nausea, vomiting, chest pain, shortness of breath, abdominal pain, dysuria, decrease in appetite. She does have generalized weakness, chronic back pain for which she takes oxycodone. Patient states she fell twice today and slumped over the couch. Reviewing her medication patient takes Lunesta and clonazepam daily. the last time daughter saw her mother normal was the previous evening before bed. TRAVEL OUTSIDE OF THE [place] IN LAST 30 DAYS: No - HPI Onset: Just prior to arrival Onset/Duration: Gradual Quality of pain: Throbbing - Tonic back pain Severity: Mild Associated symptoms: denies: Chest pain, Nonproductive cough, Productive cough, Fever, Headache, Nausea, Vomiting, Shortness of breath Exacerbated by: Denies Relieved by: Denies Similar symptoms previously: Yes - Related Data Allergies/Adverse Reactions: cyclobenzaprine HCl [From Flexeril] Allergy (Intermediate, Verified 08/10/17 12: 04) Nausea codeine [Codeine] Adverse Reaction (Intermediate, Verified 08/10/17 12:04) Nausea morphine [Morphine] Adverse Reaction (Intermediate, Verified 08/10/17 12:04) Nausea tramadol HCl [From Ultram] Adverse Reaction (Intermediate, Verified 08/10/17 12: 04) Nausea Past Medical History - General Information source: Patient, Relative, [facility] Records - Social History Smoking Status: Former Smoker Chew tobacco use (# tins/day): No Frequency of alcohol use: Occasional Drug Abuse: None Lives with: Family Family History: Reviewed & Not Pertinent Patient has suicidal ideation: No Patient has homicidal ideation: No - Past Medical History Cardiac Medical History: Reports: Hx Coronary Artery Disease, Hx Hypercholesterolemia, Hx Hypertension Denies: Hx Heart Attack Pulmonary Medical History: Denies: Hx Asthma, Hx Bronchitis, Hx COPD, Hx Pneumonia Neurological Medical History: Reports: Hx Cerebrovascular Accident - 2006, With right sided weakness. Denies: Hx Seizures Endocrine Medical History: Reports: Hx Diabetes Mellitus Type 2 Renal/ Medical History: Denies: Hx Peritoneal Dialysis GI Medical History: Reports: Hx Gastroesophageal Reflux Disease Musculoskeltal Medical History: Reports Hx Arthritis - GENERALIZED, Reports Hx Musculoskeletal Deformity, Reports Hx Musculoskeletal Trauma Psychiatric Medical History: Reports: Hx Depression Past Surgical History: Reports: Hx Cardiac Surgery - bypass, Hx Coronary Artery Bypass Graft, Hx Orthopedic Surgery - B TKA,, Hx Thyroid Surgery, Hx Vascular Surgery - Right carotid endarterectomy - Immunizations Hx Diphtheria, Pertussis, Tetanus Vaccination: Yes Review of Systems - Review of Systems Notes: Currently the patient denies any headache, visual changes, nausea, vomiting, chest pain, shortness of breath, abdominal pain, dysuria, decrease in appetite. She does admit to generalized weakness, chronic back pain. Physical Exam - Vital signs Vitals: Temp Resp 97.9 F 15 11/26/17 06:48 11/26/17 06:48 Interpretation: Normal, Hypertensive. No: Tachycardic, Febrile - General General appearance: Appears well, Alert In distress: None - HEENT Head: Normocephalic, Atraumatic Eyes: Normal Extraocular movements intact: Yes - No nystagmus Pupils: PERRL Nerve palsy: No Visual hendrickson normal: Yes Ears: Normal Tympanic membrane: Normal Mucous membranes: Dry Pharynx: Normal Neck: No: Anterior cervical chain - Respiratory Respiratory status: No respiratory distress Chest status: Nontender Breath sounds: Normal Chest palpation: Normal - Cardiovascular Rhythm: Regular Heart sounds: Normal auscultation Murmur: No Pulses: Normal: Radial, Dorsalis pedis Normal capillary refill: Yes - Abdominal Inspection: Normal Distension: No distension Bowel sounds: Normal Tenderness: Nontender Organomegaly: No organomegaly - Back Back: Tender - Diffuse paraspinal tenderness of the lumbar spine which patient reports to be chronic. - Extremities General upper extremity: Normal inspection, Nontender, Normal color, Normal ROM , Normal temperature. No: Edema General lower extremity: Normal inspection, Nontender, Normal color, Normal ROM , Normal temperature, Normal weight bearing. No: Edema, Major's sign - Neurological Neuro grossly intact: Yes Cognition: Normal Orientation: AAOx4 [place] Coma Scale Eye Opening: Spontaneous Terry Coma Scale Verbal: Oriented [place] Coma Scale Motor: Obeys Commands [place] Coma Scale Total: 15 Speech: Normal Cranial nerves: Normal Cerebellar coordination: Normal - Decreased architectural inspector strength 4 out of 5 on the right. Motor strength normal: LUE, RUE, LLE, RLE Additional motor exam normals: Dorsiflexion, Plantar flexion. No: Pronator drift Sensory: Normal - Psychological Associated symptoms: Normal mood, Flat affect. No: Anxious, Confused, Tearful Course - Re-evaluation Re-evalutation: Laboratory 11/26/17 11/26/17 11/26/17 06:35 06:35 06:35 WBC 10.5 RBC 3.87 Hgb 11.8 L Hct 35.5 L MCV 92 MCH 30.4 MCHC 33.1 RDW 13.7 Plt Count 234 Seg Neutrophils % 75.6 Lymphocytes % 15.3 Monocytes % 5.3 Eosinophils % 3.4 Basophils % 0.4 Absolute Neutrophils 7.9 Absolute Lymphocytes 1.6 Absolute Monocytes 0.6 Absolute Eosinophils 0.4 Absolute Basophils 0.0 PT 12.6 INR 0.88 APTT 27.1 Sodium 146.0 H Potassium 4.2 Chloride 105 Carbon Dioxide 30 Anion Gap 11 BUN 26 H Creatinine 0.99 Est GFR ( Amer) > 60 Est GFR (Non-Af Amer) 57 L Glucose 165 H POC Glucose Lactic Acid Calcium 9.7 Total Bilirubin 0.5 Direct Bilirubin 0.2 Neonat Total Bilirubin Not Reportable Neonat Direct Bilirubin Not Reportable Neonat Indirect Bili Not Reportable AST 25 ALT 25 Alkaline Phosphatase 63 Ammonia Creatine Kinase 137 H CK-MB (CK-2) Troponin I NT-Pro-B Natriuret Pep Total Protein 7.1 Albumin 4.3 Urine Color Urine Appearance Urine pH Ur Specific Dinosaur Urine Protein Urine Glucose (UA) Urine Ketones Urine Blood Urine Nitrite Urine Bilirubin Urine Urobilinogen Ur Leukocyte Esterase Urine WBC (Auto) Urine RBC (Auto) U Hyaline Cast (Auto) Urine Mucus (Auto) Urine Ascorbic Acid Urine Opiates Screen Urine Methadone Screen Ur Barbiturates Screen Ur Phencyclidine Scrn Ur Amphetamines Screen U Benzodiazepines Scrn Urine Cocaine Screen U Marijuana (THC) Screen Serum Alcohol < 10 11/26/17 11/26/17 11/26/17 06:35 07:20 07:20 WBC RBC Hgb Hct MCV MCH MCHC RDW Plt Count Seg Neutrophils % Lymphocytes % Monocytes % Eosinophils % Basophils % Absolute Neutrophils Absolute Lymphocytes Absolute Monocytes Absolute Eosinophils Absolute Basophils PT INR APTT Sodium Potassium Chloride Carbon Dioxide Anion Gap BUN Creatinine Est GFR ( Amer) Est GFR (Non-Af Amer) Glucose POC Glucose Lactic Acid 1.1 Calcium Total Bilirubin Direct Bilirubin Neonat Total Bilirubin Neonat Direct Bilirubin Neonat Indirect Bili AST ALT Alkaline Phosphatase Ammonia < 8.7 L Creatine Kinase CK-MB (CK-2) 0.91 Troponin I < 0.012 NT-Pro-B Natriuret Pep 482 Total Protein Albumin Urine Color Urine Appearance Urine pH Ur Specific Dinosaur Urine Protein Urine Glucose (UA) Urine Ketones Urine Blood Urine Nitrite Urine Bilirubin Urine Urobilinogen Ur Leukocyte Esterase Urine WBC (Auto) Urine RBC (Auto) U Hyaline Cast (Auto) Urine Mucus (Auto) Urine Ascorbic Acid Urine Opiates Screen Urine Methadone Screen Ur Barbiturates Screen Ur Phencyclidine Scrn Ur Amphetamines Screen U Benzodiazepines Scrn Urine Cocaine Screen U Marijuana (THC) Screen Serum Alcohol 11/26/17 11/26/17 11/26/17 07:36 07:36 10:57 WBC RBC Hgb Hct MCV MCH MCHC RDW Plt Count Seg Neutrophils % Lymphocytes % Monocytes % Eosinophils % Basophils % Absolute Neutrophils Absolute Lymphocytes Absolute Monocytes Absolute Eosinophils Absolute Basophils PT INR APTT Sodium Potassium Chloride Carbon Dioxide Anion Gap BUN Creatinine Est GFR ( Amer) Est GFR (Non-Af Amer) Glucose POC Glucose 86 Lactic Acid Calcium Total Bilirubin Direct Bilirubin Neonat Total Bilirubin Neonat Direct Bilirubin Neonat Indirect Bili AST ALT Alkaline Phosphatase Ammonia Creatine Kinase CK-MB (CK-2) Troponin I NT-Pro-B Natriuret Pep Total Protein Albumin Urine Color COLORLESS Urine Appearance CLOUDY Urine pH 5.0 Ur Specific Dinosaur 1.014 Urine Protein NEGATIVE Urine Glucose (UA) NEGATIVE Urine Ketones NEGATIVE Urine Blood NEGATIVE Urine Nitrite NEGATIVE Urine Bilirubin NEGATIVE Urine Urobilinogen NEGATIVE Ur Leukocyte Esterase SMALL H Urine WBC (Auto) 2 Urine RBC (Auto) 2 U Hyaline Cast (Auto) 1 Urine Mucus (Auto) RARE Urine Ascorbic Acid NEGATIVE Urine Opiates Screen NEGATIVE Urine Methadone Screen NEGATIVE Ur Barbiturates Screen NEGATIVE Ur Phencyclidine Scrn NEGATIVE Ur Amphetamines Screen NEGATIVE U Benzodiazepines Scrn NEGATIVE Urine Cocaine Screen NEGATIVE U Marijuana (THC) Screen NEGATIVE Serum Alcohol 11/26/17 11/26/17 16:42 22:07 WBC RBC Hgb Hct MCV MCH MCHC RDW Plt Count Seg Neutrophils % Lymphocytes % Monocytes % Eosinophils % Basophils % Absolute Neutrophils Absolute Lymphocytes Absolute Monocytes Absolute Eosinophils Absolute Basophils PT INR APTT Sodium Potassium Chloride Carbon Dioxide Anion Gap BUN Creatinine Est GFR ( Amer) Est GFR (Non-Af Amer) Glucose POC Glucose 99 100 Lactic Acid Calcium Total Bilirubin Direct Bilirubin Neonat Total Bilirubin Neonat Direct Bilirubin Neonat Indirect Bili AST ALT Alkaline Phosphatase Ammonia Creatine Kinase CK-MB (CK-2) Troponin I NT-Pro-B Natriuret Pep Total Protein Albumin Urine Color Urine Appearance Urine pH Ur Specific Dinosaur Urine Protein Urine Glucose (UA) Urine Ketones Urine Blood Urine Nitrite Urine Bilirubin Urine Urobilinogen Ur Leukocyte Esterase Urine WBC (Auto) Urine RBC (Auto) U Hyaline Cast (Auto) Urine Mucus (Auto) Urine Ascorbic Acid Urine Opiates Screen Urine Methadone Screen Ur Barbiturates Screen Ur Phencyclidine Scrn Ur Amphetamines Screen U Benzodiazepines Scrn Urine Cocaine Screen U Marijuana (THC) Screen Serum Alcohol Chest X-Ray 11/26/17 06:58 IMPRESSION: NO ACUTE RADIOGRAPHIC FINDING IN THE CHEST. Head CT 11/26/17 06:58 IMPRESSION: CHRONIC CHANGES OF ATROPHY AND MICROVASCULAR ISCHEMIA. Old left MCA distribution infarct. NO ACUTE PROCESS. EVIDENCE OF ACUTE STROKE: NO. 11/26/17 07:27 62-year-old female with a history of CAD, depression, hypertension, hyperlipidemia, diabetes, previous CVA presents via EMS today after the daughter found her awake this morning at 5 AM and confused. Daughter states that the mother was confused and stated she was waiting for the dog to eat when the dogs were in their kennel. Last time the patient was seen well was yesterday. Upon arrival NIH was performed and 1 for slurred speech but patient is without her dentures. No other neuro deficits found. Exam is significant for dry mucous membranes. She is hypertensive, afebrile and not hypoxic. She is in no acute distress. She does not appear toxic but she does appear mildly dehydrated. no significant lab findings and patient's CT is without evidence of acute stroke. She is intermittently confused. She initialy was oriented times three but on re-eval she thinks its 1956. she initially states she fell onto couch twice but now states she fell to the floor. she has no c-spine tnederness or any other signs of trauma. Although the patient's daughter reports confusion at baseline she has left the hospital so its unclear if this is worse. Patient was accepted by hospitalist for observation for possibility of TIA. 11/27/17 04:35 11/27/17 04:39 - Vital Signs Vital signs: Temp Pulse Resp BP Pulse Ox 97.9 F 64 16 117/53 L 98 11/26/17 23:25 11/27/17 00:00 11/27/17 00:00 11/27/17 00:00 11/27/17 00:00 - Laboratory Result Diagrams: 11/26/17 06:35 11/26/17 06:35 Laboratory results interpreted by me: 11/26/17 11/26/17 11/26/17 06:35 06:35 07:20 Hgb 11.8 L Hct 35.5 L Sodium 146.0 H BUN 26 H Est GFR (Non-Af Amer) 57 L Glucose 165 H Ammonia < 8.7 L Creatine Kinase 137 H Ur Leukocyte Esterase 11/26/17 07:36 Hgb Hct Sodium BUN Est GFR (Non-Af Amer) Glucose Ammonia Creatine Kinase Ur Leukocyte Esterase SMALL H Discharge - Discharge Clinical Impression: Syncope and collapse Altered mental status Qualifiers: Altered mental status type: disorientation Qualified Code(s): R41.0 - Disorientation, unspecified DM w/o complication type II Qualifiers: Diabetes mellitus usp insulin use: unspecified usp insulin use status Qualified Code(s): E11.9 - Type 2 diabetes mellitus without complications Condition: Good Disposition: ADMITTED OBSERVATION Admitting Provider: Hospitalist Unit Admitted: Telemetry ED NIH Stroke Scale - NIH Stroke Scale When completed:: Before Alteplase *: 1. NIH scale should be completed with appropriate accompanying assessment tools. *: 2. The NIH should reflect what the patient is capable of doing and should not be coached by the clinician. 1a. Level of Consciousness: 0=Alert;keenly responsive -: 1=Drowsy -: 2=Obtunded -: 3=Coma/unresponsive or reflex to noxious stimuli. 1a. Responses: 1 1b. Orientation Questions: a. What month is it? -: b. How old are you? -: 0=Answers both questions correctly. -: 1=Answers one question correctly or patient is intubated or has orotracheal trauma. -: 2=Answers neither question correctly. 1b. Responses: 0 1c. Response to commands: a. Open and close eyes? -: b. Sand Caster Apprentice and release hand? -: Credit is given despite weakness. Demonstration of task is permitted. Substitute command if hands cannot be used. -: 0=Performs both tasks correctly -: 1=Performs one task correctly -: 2=Performs neither task correctly 1c. Responses: 0 2. Gaze: Establish eye contact and instruct patient to "Follow my finger" -: 0=Normal -: 1=Partial gaze palsy. Gaze is abnormal in one or both eyes, but where forced deviation or total gaze paresis is not present. -: 2=Forced deviation or total gaze paresis. 2. Responses: 0 3. Visual Hendrickson: Sees fingers in all four quadrants. -: 0=No visual loss. -: 1=Partial hemianopsia. -: 2=Complete hemianopsia. -: 3=Bilateral hemianopsia (including Cortical blindness) 3. Responses: 0 4. Facial Movement: Instruct patient to: -: a. Show me your teeth -: b. Raise your eyebrows -: c. Close your eyes -: d. Smile -: 0=Normal symmetrical movement -: 1=Minor paralysis (flattened nasolabial fold, asymmetry on smiling). -: 2=Partial paralysis (total or near total paralysis of lower face). -: 3=Complete paralysis of upper and lower face 4. Responses: 0 5. Motor functions (left arm): Alternate sides and extend each arm with palms down (90 degrees if sitting or 45 degrees for supine). -: 0=No drift;limb holds for full 10 seconds. -: 1=Drift; limb holds but drifts down before full 10 seconds, but does not hit bed. -: 2=Some effort against gravity; limb cannot get to or maintain position. -: 3=No effort against gravity; limb falls. -: 4=No movement. -: UN=Amputation, joint fusion, explain in comments. 5. Responses (left arm): 0 5. Motor Functions (right arm): Alternate sides and extend each arm with palms down (90 degrees if sitting or 45 degrees for supine). -: 0=No drift;limb holds for full 10 seconds. -: 1=Drift; limb holds but drifts down before full 10 seconds, but does not hit bed. -: 2=Some effort against gravity; limb cannot get to or maintain position. -: 3=No effort against gravity; limb falls. -: 4=No movement. -: UN=Amputation, joint fusion, explain in comments. 5. Responses (right arm): 0 6. Motor Functions (left leg): With patient lying supine, alternate sides and extend each leg (30 degrees always while supine). -: 0=No drift, leg holds position for full 5 seconds -: 1=Drift; leg falls before full 5 seconds but does not hit bed. -: 2=Some effort against gravity, leg falls to bed but some effort against gravity. -: 3=No effort against gravity, leg falls to bed immediately. -: 4=No movement. -: UN=Amputation, joint fusion; explain in comments. 6. Responses (left leg): 0 6. Motor Functions (right leg): With patient lying supine, alternate sides and extend each leg (30 degrees always while supine). -: 0=No drift, leg holds position for full 5 seconds -: 1=Drift; leg falls before full 5 seconds but does not hit bed. -: 2=Some effort against gravity, leg falls to bed but some effort against gravity. -: 3=No effort against gravity, leg falls to bed immediately. -: 4=No movement. -: UN=Amputation, joint fusion; explain in comments. 6. Responses (right leg): 0 7. Limb Ataxia: With eyes open instruct patient to: -: a. "Touch your finger to your nose". -: b. "Touch your heel to your chavarria" -: 0=Absent -: 1=Present in one limb. -: 2=Present in two limbs. -: UN=Amputation or joint fusion; explain in comments. 7. Responses: 0 8. Sensory: Test sensation using pinprick or noxious stimuli. Test as many body parts as possible. -: 0=Normal;no sensory loss -: 1=Mile to moderate sensory loss (patient feels pin prick but is less sharp on affected side). -: 2=Severe or total sensory loss. 8. Responses: 0 9. Best Language: Instruct patient to: -: a. "Describe what you see in this picture." -: b. "Name the items in this picture." -: c. "Read these sentences." -: 0=No aphasia, normal -: 1=Mild to moderate aphasia. -: 2=Severe aphasia -: 3=Mute, global aphasia, no usable speech or auditory comprehension. 9. Responses: 0 10. Articulation, Dysarthia: Instruct patient to: -: "Read these words" or "Repeat these words" -: 0=Normal -: 1=Mild to moderate; patient may slur some words but can be understood without difficulty. -: 2=Severe; patients speech so slurred as to be unintelligible in the absence of dysphasia. -: UN=Intubated or other physical barrier, explain in comments. 10. Responses: 1 11. Extinction or inattention: 0=No abnormality -: 1= Visual, tactile, auditory, spatial, or personal inattention or extinction to bilateral simulation in one or the sensory modalities. -: 2=Profound renaldo-inattention or renaldo-inattention to more than one modality; does not recognize own hand. 11. Responses: 0 Total Score: 2
[2017-11-26 07:32] LABS: CREATINE KINASE MB 0.91 ng/mL (<4.55); NT PRO BNP 482 pg/mL (5-900)
[2017-11-26 07:50] LABS: TROPONIN I < 0.012 ng/mL
--- NOTE | 2017-11-26 08:10 | RADIOLOGY REPORT (SQ) ---
EXAM DESCRIPTION: CHEST SINGLE VIEW COMPLETED DATE/TIME: 11/26/2017 8:02 am REASON FOR STUDY: ams COMPARISON: 07/25/2017 EXAM PARAMETERS: NUMBER OF VIEWS: One view. TECHNIQUE: Single frontal radiographic view of the chest acquired. RADIATION DOSE: NA LIMITATIONS: None. FINDINGS: LUNGS AND PLEURA: No opacities, masses or pneumothorax. No pleural effusion. MEDIASTINUM AND HILAR STRUCTURES: No masses. Contour normal. HEART AND VASCULAR STRUCTURES: Heart normal in size. Normal vasculature. BONES: No acute findings. HARDWARE: Sternal wires. OTHER: No other significant finding. IMPRESSION: NO ACUTE RADIOGRAPHIC FINDING IN THE CHEST. TECHNICAL DOCUMENTATION: JOB ID: [id number] [employer]- All Rights Reserved Reading location - IP/workstation name: [email or web address]
[2017-11-26 08:11] LABS: APPEARANCE,URINE CLOUDY; COLOR,URINE COLORLESS
[2017-11-26 08:12] LABS: BILIRUBIN,URINE NEGATIVE (NEGATIVE); GLUCOSE, URINE NEGATIVE (NEGATIVE); KETONES,URINE NEGATIVE (NEGATIVE); PROTEIN,URINE NEGATIVE (NEGATIVE); URINE SPECIFIC GRAVITY 1.014; UROBILINOGEN,URINE NEGATIVE mg/dL (<2.0)
[2017-11-26 08:13] LABS: LEUKOCYTE ESTERASE,URINE SMALL (NEGATIVE); NITRITE,URINE NEGATIVE (NEGATIVE)
--- NOTE | 2017-11-26 08:24 | RADIOLOGY REPORT (SQ) ---
EXAM DESCRIPTION: CT HEAD WITHOUT COMPLETED DATE/TIME: 11/26/2017 8:09 am REASON FOR STUDY: ams COMPARISON: 06/25/2017 TECHNIQUE: Axial images acquired through the brain without intravenous contrast. Images reviewed wi th bone, brain and subdural windows. Additional sagittal and coronal reconstructions were generated. Images stored on PACS. All CT scanners at this facility use dose modulation, iterative reconstruction, and/or weight based d osing when appropriate to reduce radiation dose to as low as reasonably achievable (ALARA). [facility]: Dose Right [facility]: CareDose [facility]: Dose Right [facility]: Teradose 4D [facility]: Smart Lexy RADIATION DOSE: CT Rad equipment meets quality standard of care and radiation dose reduction techniq ues were employed. CTDIvol: 64.6 mGy. DLP: 1034 mGy-cm.mGy. LIMITATIONS: None. FINDINGS: VENTRICLES: Prominent. CEREBRUM: No masses. No hemorrhage. No midline shift. Areas of low density in the white matter mos t likely due to chronic micro-vascular ischemic change. No evidence for acute infarction. Large lef t MCA distribution infarct with encephalomalacia. Chronic. CEREBELLUM: No masses. No hemorrhage. No alteration of density. No evidence for acute infarction. EXTRAAXIAL SPACES: Age-related involutional change. No fluid collections. No masses. ORBITS AND GLOBE: No intra- or extraconal masses. Normal contour of globe without masses. CALVARIUM: No fracture. PARANASAL SINUSES: No fluid or mucosal thickening. SOFT TISSUES: No mass or hematoma. OTHER: No other significant finding. IMPRESSION: CHRONIC CHANGES OF ATROPHY AND MICROVASCULAR ISCHEMIA. Old left MCA distribution infarc t. NO ACUTE PROCESS. EVIDENCE OF ACUTE STROKE: NO. TECHNICAL DOCUMENTATION: JOB ID: [id number] Quality ID # [id number]: Final reports with documentation of one or more dose reduction techniques (e.g., Au tomated exposure control, adjustment of the mA and/or kV according to patient size, use of iterative reconstruction technique) 2010 [employer]- All Rights Reserved Reading location - IP/workstation name: [email or web address]
[2017-11-26 08:25] LABS: URINE AMPHETAMINES SCREEN NEGATIVE; URINE BARBITURATES SCREEN NEGATIVE; URINE BENZODIAZEPINES SCREEN NEGATIVE; URINE COCAINE SCREEN NEGATIVE; URINE MARIJUANA (THC) SCREEN NEGATIVE; URINE METHADONE SCREEN NEGATIVE; URINE PHENCYCLIDINE SCREEN NEGATIVE
--- NOTE | 2017-11-26 09:28 | EKG REPORT ---
SEVERITY:- BORDERLINE ECG - SINUS RHYTHM BORDERLINE T ABNORMALITIES, ANT-LAT LEADS : Confirmed by: Capo Butterfield MD 26-Nov-2017 09:27:23
[2017-11-26] MEDS ORDERED: PROMETHAZINE HCL 25 MG TABLET PO PRN (10:08)
[2017-11-26] MEDS ORDERED: LEVALBUTEROL HCL NEB 1.25 MG/3 ML AMPUL NEB PRN (10:08)
[2017-11-26] MEDS ORDERED: (PENDING PHARMACY ID) (Ranitidine Hcl [Ranitidine Hcl] 150 MG) PO SCH (10:15)
[2017-11-26] MEDS ORDERED: ARIPIPRAZOLE 20 MG PO SCH (10:15)
[2017-11-26] MEDS ORDERED: GLUCAGON,HUMAN RECOMB 1 MG INJ IM PRN (10:16)
[2017-11-26] MEDS ORDERED: DEXTROSE 40% GEL 15 GM TUBE PO PRN ×2 (10:16)
[2017-11-26] MEDS ORDERED: INSULIN LISPRO 100 UNIT/ML 3 ML VIAL SUBCUT PRN (10:16)
[2017-11-26] MEDS ORDERED: DEXTROSE 50%-WATER 25 GM/50 ML DISP.SYRIN IV PRN ×2 (10:16)
[2017-11-26] MEDS ORDERED: HYDRALAZINE HCL INJ/PF 20 MG/1 ML SDV IV PRN (10:40)
--- NOTE | 2017-11-26 10:42 | PDOC H&P ---
History of Present Illness Admission Date/PCP: 11/26/17 09:44 JULIAN RODRÍGUEZ PA-C History of Present Illness: TEE CALVERT is a 62 year old female with past medical history of recurrent stroke. CVA in 2006 left MCA territory with right-sided weakness 2014 MRI showed left lateral basal ganglia and left occipital chronic infarcts Bipolar disorder Severe depression requiring inpatient psychiatric admission last in June 2016 Hypertension Hyperlipidemia Diabetes not insulin dependent Julian artery disease Surgical history Left carotid endarterectomy in 2007 Coronary artery disease status post triple-vessel bypass in 2007 Shoulder rotator cuff surgery and bicep repair in July [address] Good in . According to the daughter she had a normal stress test and workup done in October of this year at her public health. Last carotid Dopplers were in 2016 and showed a 50% stenosis on the right. She follows this up in . Rating to her daughter Anna Jeffries phone #[phone] who is the healthcare power of assistant prosecuting attorney, the patient had been doing well up until last night. This morning when she woke up she noticed that the patient was very confused was not oriented to place and time. Was confused about the location of the dog and what she will was on TV. Both patient and daughter deny any recent illness any facial droop or focal weakness loss of consciousness reports of chest pain or dizziness, Although review of systems with the patient is unreliable given confusion. She does have a walker and at home but does not use them. Initial workup in the emergency room has been unremarkable. CT of the brain shows old left MCA infarct with chronic changes of atrophy and microvascular ischemia with no acute changes. Chest x-ray is unremarkable. Urine tox screen is negative. Urinalysis shows no evidence of UTI. Electrolytes are normal with no evidence of dehydration. She is afebrile. At this time we suspect most likely a recurrent stroke. She has had recent carotid Dopplers. We will get an MRI of the brain. According to the daughter the patient has in the past requested to be a DO NOT RESUSCITATE and this will be honored and respect for her wishes. Past Medical History Cardiac Medical History: Reports: Coronary Artery Disease, Hyperlipidema, Hypertension Denies: Myocardial Infarction Pulmonary Medical History: Denies: Asthma, Bronchitis, Chronic Obstructive Pulmonary Disease (COPD), Pneumonia Neurological Medical History: Denies: Seizures Endocrine Medical History: Reports: Diabetes Mellitus Type 2 GI Medical History: Reports: Gastroesophageal Reflux Disease Musculoskeltal Medical History: Reports: Arthritis - GENERALIZED Psychiatric Medical History: Reports: Bipolar Disorder, Depression Hematology: Reports: Anemia Past Surgical History Past Surgical History: Reports: Coronary Artery Bypass Graft, Orthopedic Surgery - B TKA,, Vascular Surgery - Right carotid endarterectomy Social History Lives with: Family Smoking Status: Former Smoker Frequency of Alcohol Use: None Hx Recreational Drug Use: No Hx Prescription Drug Abuse: No Family History Family History: Hypertension Parental Family History Reviewed: Yes Children Family History Reviewed: Yes Sibling(s) Family History Reviewed.: Yes Medication/Allergy Home Medications: Aripiprazole [Abilify 10 mg Tablet] 20 mg PO BID 01/20/15 Metformin HCl [Glucophage] 500 mg PO BID 01/20/15 Aspirin 81 mg PO DAILY 03/02/16 Atorvastatin Calcium [Lipitor 80 mg Tablet] 80 mg PO QHS 08/02/17 Duloxetine HCl [Cymbalta] 60 mg PO DAILY 08/02/17 Eszopiclone [Lunesta] 2 mg PO DAILY 08/02/17 Lisinopril [Prinivil 10 mg Tablet] 10 mg PO DAILY 08/02/17 Metoprolol Succinate 25 mg PO DAILY 08/02/17 Mirtazapine [Remeron] 30 mg PO DAILY 08/02/17 Ranitidine HCl 150 mg PO BID 08/02/17 Oxycodone HCl/Acetaminophen [Percocet 5-325 mg Tablet] 1 - 2 tab PO ASDIR PRN # 60 tablet 08/10/17 Allergies/Adverse Reactions: cyclobenzaprine HCl [From Flexeril] Allergy (Intermediate, Verified 08/10/17 12: 04) Nausea codeine [Codeine] Adverse Reaction (Intermediate, Verified 08/10/17 12:04) Nausea morphine [Morphine] Adverse Reaction (Intermediate, Verified 08/10/17 12:04) Nausea tramadol HCl [From Ultram] Adverse Reaction (Intermediate, Verified 08/10/17 12: 04) Nausea Review of Systems ROS unobtainable: Due to mental status Physical Exam Vital Signs: Temp Pulse Resp BP Pulse Ox 97.6 F 63 16 134/65 H 100 11/26/17 07:38 11/26/17 09:00 11/26/17 09:00 11/26/17 09:00 11/26/17 09:00 General appearance: PRESENT: no acute distress, cooperative Head exam: PRESENT: atraumatic, normocephalic Eye exam: PRESENT: conjunctiva pink, PERRLA. ABSENT: nystagmus, scleral icterus Ear exam: PRESENT: normal external ear exam Mouth exam: PRESENT: moist, neck supple Teeth exam: PRESENT: edentulous Neck exam: PRESENT: other - Left carotid endarterectomy scar present. ABSENT: carotid bruit, tenderness, tracheal deviation Respiratory exam: PRESENT: clear to auscultation shaq, symmetrical, unlabored. ABSENT: accessory muscle use Cardiovascular exam: PRESENT: RRR GI/Abdominal exam: PRESENT: normal bowel sounds, soft. ABSENT: tenderness Rectal exam: PRESENT: deferred Extremities exam: ABSENT: calf tenderness, pedal edema Neurological exam: PRESENT: alert, awake, CN II-XII grossly intact, other - Speech is mumbled due to lack of dentures.. ABSENT: oriented to place, oriented to time, motor sensory deficit Psychiatric exam: PRESENT: appropriate affect Results Impressions: Chest X-Ray 11/26/17 06:58 IMPRESSION: NO ACUTE RADIOGRAPHIC FINDING IN THE CHEST. Head CT 11/26/17 06:58 IMPRESSION: CHRONIC CHANGES OF ATROPHY AND MICROVASCULAR ISCHEMIA. Old left MCA distribution infarct. NO ACUTE PROCESS. EVIDENCE OF ACUTE STROKE: NO. Assessment & Plan - Diagnosis (1) Suspected cerebrovascular accident (CVA) Is this a current diagnosis for this admission?: Yes Plan: Serial neurologic evaluations Fall precautions PT OT and speech evaluation Aspirin, statin, permissive hypertension. Plavix added. MRI brain without contrast. (2) Diabetes mellitus with cardiac complication Is this a current diagnosis for this admission?: Yes Plan: Hold metformin, ISS (3) Hypertension Is this a current diagnosis for this admission?: Yes Plan: permissive hypertension (4) Hyperlipidemia Is this a current diagnosis for this admission?: Yes Plan: Atorvastatin (5) Bipolar 1 disorder Is this a current diagnosis for this admission?: Yes Plan: Continue outpatient meds (6) GERD (gastroesophageal reflux disease) Is this a current diagnosis for this admission?: Yes Plan: Ranitidine (7) Altered mental status Qualifiers: Altered mental status type: disorientation Qualified Code(s): R41.0 - Disorientation, unspecified Is this a current diagnosis for this admission?: Yes Plan: Suspect acute CVA- see above (8) DVT prophylaxis Is this a current diagnosis for this admission?: Yes Plan: Lovenox s/c (9) CVA, old, cognitive deficits Is this a current diagnosis for this admission?: Yes Plan: ON Aspirin and Statin Plavix added - Time Time Spent: Greater than 70 Minutes - Plan Summary Plan Summary: Observation on telemetry. Anticipate her workup and management will be complete in less than 2 midnights.
[2017-11-26] MEDS ORDERED: FAMOTIDINE 20 MG TABLET PO ONE (10:45)
[2017-11-26] MEDS ORDERED: DULOXETINE HCL 30 MG CAPSULE.DR PO ONE (10:45)
[2017-11-26] MEDS ORDERED: ENOXAPARIN SODIUM INJ 40 MG/0.4 ML DISP.SYRIN SUBCUT ONE (10:45)
[2017-11-26] MEDS: ASPIRIN 81 MG TABLET, CHEWABLE PO SCH (10:57)
[2017-11-26] MEDS: CLOPIDOGREL BISULFATE 75 MG TABLET PO SCH (10:59)
[2017-11-26] MEDS ORDERED: ARIPIPRAZOLE 5 MG TABLET PO ONE (11:00)
[2017-11-26] MEDS: NORMAL SALINE 1000 ML 1,000 ML IV PRN ×2 (11:27→23:54)
[2017-11-26] MEDS: DOCUSATE SODIUM 100 MG CAPSULE PO SCH (17:07)
[2017-11-26] MEDS: ARIPIPRAZOLE 5 MG TABLET PO SCH (17:07)
[2017-11-26] MEDS: FAMOTIDINE 20 MG TABLET PO SCH (17:07)
[2017-11-26] MEDS ORDERED: MIRTAZAPINE 15 MG TABLET PO SCH (22:00)
[2017-11-26] MEDS ORDERED: ZOLPIDEM TARTRATE 5 MG TABLET PO SCH (22:00)
[2017-11-26] MEDS ORDERED: ATORVASTATIN CALCIUM 80 MG TABLET PO SCH (22:00)
[2017-11-26] MEDS ORDERED: (PENDING PHARMACY ID) (Eszopiclone [Lunesta] 2 MG) PO SCH (22:00)
[2017-11-27] MEDS: ACETAMINOPHEN 325 MG TABLET PO PRN ×2 (03:41→17:07)
[2017-11-27 05:49] LABS: ANION GAP 7 (5-19); BLOOD UREA NITROGEN 19 mg/dL (7-20); CALCIUM 8.9 mg/dL (8.4-10.2); CARBON DIOXIDE 26 mmol/L (22-30); CHLORIDE 108 mmol/L (98-107); CHOLESTEROL 139.58 mg/dL (0-200); GLUCOSE 82 mg/dL (75-110); PHOSPHORUS 3.5 mg/dL (2.5-4.5); POTASSIUM 4.1 mmol/L (3.6-5.0); SODIUM 140.5 mmol/L (137-145); TRIGLYCERIDES 98 mg/dL (<150)
[2017-11-27 06:00] LABS: DIRECT LDL 70 mg/dL (<100)
[2017-11-27] MEDS ORDERED: ENOXAPARIN SODIUM INJ 40 MG/0.4 ML DISP.SYRIN SUBCUT SCH (10:00)
[2017-11-27] MEDS ORDERED: DULOXETINE HCL 30 MG CAPSULE.DR PO SCH (10:00)
[2017-11-27] MEDS: DOCUSATE SODIUM 100 MG CAPSULE PO SCH ×2 (10:23→17:07)
[2017-11-27] MEDS: ASPIRIN 81 MG TABLET, CHEWABLE PO SCH (10:24)
[2017-11-27] MEDS: ARIPIPRAZOLE 5 MG TABLET PO SCH ×2 (10:24→17:06)
[2017-11-27] MEDS: CLOPIDOGREL BISULFATE 75 MG TABLET PO SCH (10:24)
[2017-11-27] MEDS: FAMOTIDINE 20 MG TABLET PO SCH ×2 (10:24→17:06)
--- NOTE | 2017-11-27 10:33 | RADIOLOGY REPORT (SQ) ---
EXAM DESCRIPTION: MRI HEAD WITHOUT COMPLETED DATE/TIME: 11/27/2017 9:21 am REASON FOR STUDY: CVA- recurrent? COMPARISON: 01/20/2015 TECHNIQUE: Multiplanar imaging includes non-contrasted T1, T2, FLAIR, and diffusion with ADC map seq uences. Images stored on PACS. LIMITATIONS: None. FINDINGS: ANATOMY: No anomalies. Normal vascular flow voids. Pituitary fossa normal. CSF SPACES: Atrophy induced prominence of ventricles and CSF spaces. CEREBRUM: High signal intensity lesions scattered throughout the white matter on FLAIR imaging with d istribution suggesting micro-vascular ischemic changes. No evidence of hemorrhage, mass, or extraaxi al fluid collection. The old left frontal and occipital infarcts. POSTERIOR FOSSA: No signal alteration. No hemorrhage. No edema, masses or mass effect. Internal naun tory canals, cerebello-pontine angles, mastoids normal. DIFFUSION IMAGING: Negative for acute or sub-acute infarction. ORBITS: No masses. Globes normal. PARANASAL SINUSES: No fluid levels. Mucosa normal. OTHER: No other significant finding. IMPRESSION: Chronic atrophy and microvascular ischemia. Large left frontal and smaller left occipit al infarcts which are chronic. No acute intracranial process. EVIDENCE OF ACUTE STROKE: None TECHNICAL DOCUMENTATION: JOB ID: [id number] [employer]- All Rights Reserved Reading location - IP/workstation name: [email or web address]
--- NOTE | 2017-11-27 11:03 | Physician Advisory Note ---
Physician Advisor ProgressNote .: Pursuant to the plan for [facility], I have reviewed the medical record for this patient. Physician Advisor Statement: Please specify type of altered mental status (AMS) present: A. Acute Metabolic Encephalopathy due to = AMS due to acute or chronic medical disease state, such as systemic metabolic or intracranial process that is usually reversible when the underlying cause is corrected. - Causes include fever, infection, dehydration, acidosis, sepsis, hypoxia, electrolyte imbalance, B. Acute Toxic Encephalopathy due to =AMS due to drug, poison, or toxin. Usually reversible. C.Acute Delirium due to =nonspecific disorientation/behavioral problem with a cause that can be psychiatric, encephalopathic, or intracranial. May show confusion, disorientation, agitation, inattention, . *If documentation does not specify the underlying cause of delirium, the ICD- 10 coding classification attributes it to a psychiatric origin (such as schizophrenia, katie, or rapid progression of dementia), with a correspondingly lower severity of illness, than if there is encephalopathy. -Cause examples: due to Acute Metabolic Encephalopathy, due to due to dementia with sundowning due to , superimposed on dementia, evidenced by (which is different than baseline, which is ) D. "Acute cerebrovascular insufficiency* due to atherosclerotic cerebrovascular dz with confusion/disorientation to place/time, resolved. " [* vs "reversible cerebrovascular vasoconstriction syndrome" - vs "Acute TIA of ___[site]" - vs "Acute cerebral ischemia" - vs "Acute Lt-sided thrombotic [or embolic, or other etiology] ___ artery CVA with cerebral infarction, Status: appopriately made Obs to start. If not safe for d/c today, please document today's concerns/acute issues, & then may possibly qualify for change to Inpatient status. Thanks! CK
[2017-11-27] MEDS: NORMAL SALINE 1000 ML 1,000 ML IV PRN (12:04)
[2017-11-27] MEDS ORDERED: DICLOFENAC POTASSIUM 50 MG PO PRN (17:04)
[2017-11-27 17:48] VITALS: BP 137/61
[2017-11-27] MEDS ORDERED: (PENDING PHARMACY ID) (Ranitidine Hcl [Zantac 150 Mg Tablet] 150 MG) PO SCH (18:00)
[2017-11-27] MEDS ORDERED: ARIPIPRAZOLE 5 MG TABLET PO SCH (18:00)
[2017-11-27] MEDS ORDERED: (PENDING PHARMACY ID) (Aripiprazole [Abilify 15 Mg Tablet] 15 MG) PO SCH (18:00)
[2017-11-27] MEDS ORDERED: BENZTROPINE MESYLATE 1 MG TABLET PO SCH (18:00)
--- NOTE | 2017-11-27 18:26 | PDOC DISCHARGE SUMMARY ---
General - Admit/Disc Date/PCP Admission Date/Primary Care Provider: 11/26/17 09:44 JULIAN RODRÍGUEZ PA-C Discharge Date: 11/27/17 - Discharge Diagnosis (1) TIA (transient ischemic attack) Is this a current diagnosis for this admission?: Yes (2) Diabetes mellitus with cardiac complication Is this a current diagnosis for this admission?: Yes (3) Hypertension Is this a current diagnosis for this admission?: Yes (4) Hyperlipidemia Is this a current diagnosis for this admission?: Yes (5) Bipolar 1 disorder Is this a current diagnosis for this admission?: Yes (6) GERD (gastroesophageal reflux disease) Is this a current diagnosis for this admission?: Yes (7) Altered mental status Is this a current diagnosis for this admission?: Yes (8) DVT prophylaxis Is this a current diagnosis for this admission?: Yes (9) CVA, old, cognitive deficits Is this a current diagnosis for this admission?: Yes - Additional Information Resuscitation Status: Do Not Resuscitate Discharge Diet: Diabetic Discharge Activity: Activity As Tolerated Prescriptions: Clopidogrel Bisulfate [Plavix 75 mg Tablet] 75 mg PO DAILY 30 Days #30 tablet Home Medications: Aripiprazole [Abilify 15 mg Tablet] 15 mg PO BID 11/26/17 Atorvastatin Calcium [Lipitor 80 mg Tablet] 80 mg PO DAILY 11/26/17 Benztropine Mesylate 1 mg PO BID 11/26/17 Clonazepam [Klonopin] 0.5 mg PO DAILY 11/26/17 Diclofenac Potassium [Cambia] 50 mg PO Q6HP PRN 11/26/17 Duloxetine HCl [Cymbalta] 60 mg PO QHS 11/26/17 Eszopiclone [Lunesta] 2 mg PO QHS 11/26/17 Lisinopril [Zestril] 10 mg PO DAILY 11/26/17 Metformin HCl [Glucophage 500 mg Tablet] 500 mg PO BIDBS 11/26/17 Metoprolol Succinate [Toprol Xl 25 mg Tab.sr] 25 mg PO DAILY 11/26/17 Mirtazapine [Remeron] 30 mg PO QHS 11/26/17 Ranitidine HCl [Zantac 150 mg Tablet] 150 mg PO BID 11/26/17 Aripiprazole [Abilify 5 mg Tablet] 20 mg PO BID tablet 11/27/17 Aspirin [Aspirin 81 mg Chewable Tablet] 81 mg PO DAILY tab.chew 11/27/17 Atorvastatin Calcium [Lipitor 80 mg Tablet] 80 mg PO QHS tablet 11/27/17 Clopidogrel Bisulfate [Plavix 75 mg Tablet] 75 mg PO DAILY 30 Days #30 tablet Duloxetine HCl [Cymbalta 30 mg Capsule.] 60 mg PO DAILY capsule. 11/27/17 Mirtazapine [Remeron 15 mg Tablet] 30 mg PO QHS tablet 11/27/17 History of Present Illness History of Present Illness: TEE CALVERT is a 62 year old female with past medical history of recurrent stroke. CVA in 2006 left MCA territory with right-sided weakness 2014 MRI showed left lateral basal ganglia and left occipital chronic infarcts Bipolar disorder Severe depression requiring inpatient psychiatric admission last in June 2016 Hypertension Hyperlipidemia Diabetes not insulin dependent Julian artery disease Surgical history Left carotid endarterectomy in 2007 Coronary artery disease status post triple-vessel bypass in 2007 Shoulder rotator cuff surgery and bicep repair in July [address] 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 Last carotid Dopplers were in 2016 and showed a 50% stenosis on the right. Daughter Micheline Jeffries phone #[phone] who is the healthcare power of attorney law clerk , the patient had been doing well up until morning of admission. On the morning of admission when she woke up she noticed that the patient was very confused was not oriented to place and time. Was confused about the location of the dog and what show was on TV. Both patient and daughter denied any recent illness any facial droop or focal weakness loss of consciousness reports of chest pain or dizziness, CT of the brain showed old left MCA infarct with chronic changes of atrophy and microvascular ischemia with no acute changes. Chest x-ray unremarkable. Urine tox screen negative. Urinalysis showed no evidence of UTI. Electrolytes are normal with no evidence of dehydration. She is afebrile. At this time we suspect most likely a recurrent stroke. She has had recent carotid Dopplers. MRI of the brain showed old CVA. According to the daughter the patient has in the past requested to be a DO NOT RESUSCITATE and this will be honored and respect for her wishes. Final diagnosis: TIA. Plavix was added to her regimen. No other changes. She was seen by PT, OT and speech therapy and did well. Today she is oriented and not confused. Stable for discharge home. Hospital Course Hospital Course: See above Physical Exam Vital Signs: Temp Pulse Resp BP Pulse Ox 98.6 F 61 16 128/64 H 99 11/27/17 15:07 11/27/17 15:07 11/27/17 15:07 11/27/17 15:07 11/27/17 15:07 Intake & Output 11/26/17 11/27/17 11/28/17 06:59 06:59 06:59 Intake Total 1845 200 Output Total 300 Balance 1545 200 Weight 73.5 kg General appearance: PRESENT: no acute distress Head exam: PRESENT: normocephalic Eye exam: PRESENT: PERRLA. ABSENT: scleral icterus Ear exam: PRESENT: normal external ear exam Mouth exam: PRESENT: moist Respiratory exam: PRESENT: clear to auscultation shaq, symmetrical, unlabored Results Laboratory Results: 11/27/17 04:56 11/27/17 11/27/17 04:56 04:56 Sodium 140.5 Potassium 4.1 Chloride 108 H Carbon Dioxide 26 Anion Gap 7 BUN 19 Creatinine 0.83 Est GFR ( Amer) > 60 Est GFR (Non-Af Amer) > 60 Glucose 82 Calcium 8.9 Phosphorus 3.5 Triglycerides 98 Cholesterol 139.58 LDL Cholesterol Direct 70 VLDL Cholesterol 20.0 HDL Cholesterol 50 TSH 1.52 Impressions: Chest X-Ray 11/26/17 06:58 IMPRESSION: NO ACUTE RADIOGRAPHIC FINDING IN THE CHEST. Head CT 11/26/17 06:58 IMPRESSION: CHRONIC CHANGES OF ATROPHY AND MICROVASCULAR ISCHEMIA. Old left MCA distribution infarct. NO ACUTE PROCESS. EVIDENCE OF ACUTE STROKE: NO. Head MRI 11/27/17 00:00 IMPRESSION: Chronic atrophy and microvascular ischemia. Large left frontal and smaller left occipital infarcts which are chronic. No acute intracranial process. EVIDENCE OF ACUTE STROKE: None Qualifiers - * PATEINT BEING DISCHARGED WITH ANY OF THE FOLLOWING DIAGNOSIS?: No Plan Time Spent: Greater than 30 Minutes
[2017-11-27] MEDS ORDERED: MIRTAZAPINE 15 MG TABLET PO SCH (22:00)
[2017-11-27] MEDS ORDERED: (PENDING PHARMACY ID) (Eszopiclone [Lunesta] 2 MG) PO SCH (22:00)
[2017-11-28] MEDS ORDERED: METFORMIN HCL 500 MG TABLET PO SCH (08:00)
[2017-11-28] MEDS ORDERED: CLONAZEPAM 1 MG TABLET PO SCH (10:00)
[2017-11-28] MEDS ORDERED: (PENDING PHARMACY ID) (Clonazepam [Klonopin] 0.5 MG) PO SCH (10:00)
[2017-11-28] MEDS ORDERED: LISINOPRIL 10 MG TABLET PO SCH (10:00)
[2017-11-28] MEDS ORDERED: METOPROLOL SUCCINATE 25 MG TAB.SR.24H PO SCH (10:00)
[2017-11-28] MEDS ORDERED: ATORVASTATIN CALCIUM 80 MG TABLET PO SCH (10:00)
== END 2017-11-27 18:18 | disposition home or self-care (01) ==
LOC: ER 06:33 → EH 09:44 → 3W 14:58
PROVIDERS: ADMIT Internal Medicine; ATTEND Internal Medicine
DX: G45.9 Transient cerebral ischemic attack, unspecified (principal); R41.82 Altered mental status, unspecified; E11.9 Type 2 diabetes mellitus without complications; R55 Syncope and collapse; I10 Essential (primary) hypertension; E78.5 Hyperlipidemia, unspecified; F31.9 Bipolar disorder, unspecified; K21.9 Gastro-esophageal reflux disease without esophagitis; I69.319 Unspecified symptoms and signs involving cognitive functions following cerebral infarction
CPT/HCPCS: 93005; 99285; 96372; 96360; 96361; 36415 ×2; 82553; 82962 ×2; 80307 ×2; 82140; 82550; 83605; 84100; 84443; 85025; 85610; 85730; 80048; 80053; 81001; 84484; 83036; 80061; 83880; 70551; 71045; 70450; 93010; 97110; 97161; 92523; 97167; G0378 ×3; J3490 ×16; J1650 ×2; J7030 ×2; J7040

== ENCOUNTER → 2018-03-16 | Outpatient (CLI) | payer MEDICAID ==
--- NOTE | 2018-03-16 18:10 | WOMENS IMAGING REPORT ---
EXAM DESCRIPTION: 3D SCREENING MAMMO BILAT COMPLETED DATE/TIME: 03/16/2018 10:28 am REASON FOR STUDY: BILATERAL SCREENING MAMMO 3D/Z12.31 Z12.31 ENCNTR SCREEN MAMMOGRAM FOR MALIGNANT NEOPLASM OF MAGGY COMPARISON: None. TECHNIQUE: Standard craniocaudal and mediolateral oblique views of each breast recorded using digita l acquisition and breast tomosynthesis. LIMITATIONS: None. FINDINGS: No masses, calcifications or architectural distortion. No areas of suspicion. Read with the assistance of CAD. .[facility] - R2 [employer] Version 1.3 .[facility] - R2 Cenova Version 1.3 .[facility] - R2 Cenova Version 2.4 .[facility] [place] C[employer]ova Version 2.4 .[facility] - R2 [employer] Version 9.2 IMPRESSION: NORMAL MAMMOGRAM. BIRADS 1. BREAST DENSITY: b. There are scattered areas of fibroglandular density. BIRAD: 1 NEGATIVE RECOMMENDATION: ROUTINE SCREENING Please continue yearly bilateral screening mammography/tomosynthesis in February 2019 COMMENT: The patient has been notified of the results by letter per [place] requirements. Additional no tification policies are in place for contacting patient with suspicious or incomplete findings. Quality ID #[id number]: The [employer] recommends an annual screening mammogram for women aged 40 years or over. This facility utilizes a reminder system to ensure that all patients receive reminder letters, and/or direct phone calls for appointments. This includes reminders for routine scr eening mammograms, diagnostic mammograms, or other Breast Imaging Interventions when appropriate. Th is patient will be placed in the appropriate reminder system. The [employer] (ACR) has developed recommendations for screening MRI of the breast s in certain patient populations, to be used in conjunction with mammography. Breast MRI surveillanc e may be appropriate for women with more than 20% lifetime risk of developing breast cancer as deter mined by genetic testing, significant family history of the disease, or history of mantle radiation f or Hodgkins Disease. ACR Practice Guidelines 2008. DBT Technology DBT is a type of tomographic mammography. With conventional mammography, overlapping breast tissue ma y make lesions difficult to detect, even with good compression. DBT uses an x-ray tube that rotates a round the breast, taking images at different angles. These images are then combined to create thin sl ices of the breast that the radiologist can view as a 3D reconstruction. The [employer] unit can perform full-field digital mammograms (2D imaging); or DBT (3D imaging); or both, in a combination mode that quickly performs both the mammogram and the tomosynthesis scan while the breast is still compressed. PQRS 6045F: Fluoroscopic imaging is not utilized for breast tomosynthesis. TECHNICAL DOCUMENTATION: FINDING NUMBER: (1) ASSESSMENT: (1) JOB ID: [id number] [employer]- All Rights Reserved Reading location - IP/workstation name: [facility]
== END ==
LOC: WI 09:27
PROVIDERS: ATTEND Physician Assistant
DX: Z12.31 Encounter for screening mammogram for malignant neoplasm of breast (principal)
CPT/HCPCS: 77063; 77067

== ENCOUNTER → 2018-04-18 | Outpatient (CLI) | payer MEDICAID ==
[2018-04-18 16:22] LABS: HEMATOCRIT 31.2 % (36.0-47.0); HEMOGLOBIN 10.8 g/dL (12.0-15.5); MEAN CORPUSCULAR HEMOGLOBIN 30.8 pg (27.0-33.4); MEAN CORPUSCULAR HGB CONC 34.4 g/dL (32.0-36.0); MEAN CORPUSCULAR VOLUME 89 fl (80-97); PLATELET COUNT 241 10^3/uL (150-450); RED BLOOD COUNT 3.49 10^6/uL (3.72-5.28); RED CELL DISTRIBUTION WIDTH 12.8 % (11.5-14.0); WHITE BLOOD COUNT 6.9 10^3/uL (4.0-10.5)
[2018-04-18 16:26] LABS: APPEARANCE,URINE CLEAR; BILIRUBIN,URINE NEGATIVE (NEGATIVE); COLOR,URINE STRAW; GLUCOSE, URINE NEGATIVE (NEGATIVE); KETONES,URINE NEGATIVE (NEGATIVE); LEUKOCYTE ESTERASE,URINE NEGATIVE (NEGATIVE); NITRITE,URINE NEGATIVE (NEGATIVE); PROTEIN,URINE NEGATIVE (NEGATIVE); URINE SPECIFIC GRAVITY 1.014; UROBILINOGEN,URINE NEGATIVE mg/dL (<2.0)
[2018-04-18 16:53] LABS: ANION GAP 13 (5-19); BLOOD UREA NITROGEN 18 mg/dL (7-20); CALCIUM 9.3 mg/dL (8.4-10.2); CARBON DIOXIDE 24 mmol/L (22-30); CHLORIDE 106 mmol/L (98-107); GLUCOSE 158 mg/dL (75-110); POTASSIUM 4.2 mmol/L (3.6-5.0); SODIUM 143.2 mmol/L (137-145)
== END ==
LOC: OD 15:27
PROVIDERS: ATTEND Internal Medicine Nephrology
DX: I12.9 Hypertensive chronic kidney disease with stage 1 through stage 4 chronic kidney disease, or unspecified chronic kidney disease (principal); N18.3 Chronic kidney disease, stage 3 (moderate)
CPT/HCPCS: 36415; 80048; 81001; 85027

== ENCOUNTER 2018-07-27 17:57 | Emergency (ER) | payer MEDICAID ==
[2018-07-27 19:03] LABS: ABSOLUTE BASOPHILS # (AUTO) 0.1 10^3/uL (0.0-0.2); ABSOLUTE EOSINOPHILS # (AUTO) 0.1 10^3/uL (0.0-0.6); ABSOLUTE LYMPHOCYTES (AUTO) 0.8 10^3/uL (0.5-4.7); ABSOLUTE MONOCYTES (AUTO) 0.5 10^3/uL (0.1-1.4); ABSOLUTE NEUT (AUTO) 7.6 10^3/uL (1.7-8.2); BASOPHILS % (AUTO) 0.7 % (0-2); EOSINOPHILS % (AUTO) 0.9 % (0-6); HEMATOCRIT 30.7 % (36.0-47.0); HEMOGLOBIN 10.5 g/dL (12.0-15.5); LYMPHOCYTES % (AUTO) 8.7 % (13-45); MEAN CORPUSCULAR HEMOGLOBIN 31.1 pg (27.0-33.4); MEAN CORPUSCULAR HGB CONC 34.2 g/dL (32.0-36.0); MEAN CORPUSCULAR VOLUME 91 fl (80-97); MONOCYTES % (AUTO) 5.7 % (3-13); PLATELET COUNT 279 10^3/uL (150-450); RED BLOOD COUNT 3.37 10^6/uL (3.72-5.28); RED CELL DISTRIBUTION WIDTH 13.5 % (11.5-14.0); TOTAL CELLS COUNTED % (AUTO) 100 %; WHITE BLOOD COUNT 9.1 10^3/uL (4.0-10.5)
[2018-07-27 19:24] LABS: ALANINE AMINOTRANSFERASE 11 U/L (9-52); ALKALINE PHOSPHATASE 48 U/L (38-126); ANION GAP 11 (5-19); ASPARTATE AMINO TRANSFERASE 18 U/L (14-36); BILIRUBIN,DIRECT 0.3 mg/dL (0.0-0.4); BILIRUBIN,TOTAL 0.5 mg/dL (0.2-1.3); BLOOD UREA NITROGEN 22 mg/dL (7-20); CALCIUM 9.7 mg/dL (8.4-10.2); CARBON DIOXIDE 26 mmol/L (22-30); CHLORIDE 105 mmol/L (98-107); CREATINE KINASE 60 U/L (30-135); GLUCOSE 181 mg/dL (75-110); POTASSIUM 4.1 mmol/L (3.6-5.0); SODIUM 142.2 mmol/L (137-145); TOTAL PROTEIN 6.9 g/dL (6.3-8.2)
[2018-07-27] MEDS ORDERED: NORMAL SALINE 1000 ML 1,000 ML IV ONE (19:34)
--- NOTE | 2018-07-27 19:34 | ER Document Report ---
ED Dizziness/Weakness - General Chief Complaint: Dizziness Stated Complaint: GENERALIZED WEAKNESS Time Seen by Provider: 07/27/18 19:08 Notes: Patient is a 63-year-old female presenting to the emergency department complaining of generalized dizziness and lightheadedness prior to arrival to the emergency room. Patient states she was attempting to help her daughter with house chores to include vacuuming she got dizzy lightheaded had blurred vision and had to sit down. Patient states that no time did she develop a headache, chest pain, shortness of breath, diaphoresis. Patient states since she has been sitting down still she feels a lot better. Patient denies dysuria , diarrhea, vomiting, URI symptoms. Patient does admit to decreased p.o. recently. States she just has not felt like eating. Patient also admits to not taking her prescribed medications for over the last month. Patient states she has felt very depressed and has not wanted to take her medications. States she was to her primary care doctor yesterday and was restarted on all of her medications. States last night was the first time in over a month she had taken all of her medications. Patient denies SI, HI, auditory or visual hallucinations. Past medical history: Diabetes, CVA in 2006, carotid artery surgery, hypertension, depression Medications: Lisinopril, clopidogrel, ranitidine, benztropine, clonazepam, Trentellex, Ariprazole, mirtazapine, eszopiclone Allergies: Morphine, Flexeril, codeine, tramadol Surgical history, CABG, carotid artery, bilateral knee replacement. TRAVEL OUTSIDE OF THE [place] IN LAST 30 DAYS: No - Related Data Allergies/Adverse Reactions: cyclobenzaprine HCl [From Flexeril] Allergy (Intermediate, Verified 08/10/17 12: 04) Nausea codeine [Codeine] Adverse Reaction (Intermediate, Verified 08/10/17 12:04) Nausea morphine [Morphine] Adverse Reaction (Intermediate, Verified 08/10/17 12:04) Nausea tramadol HCl [From Ultram] Adverse Reaction (Intermediate, Verified 08/10/17 12: 04) Nausea Past Medical History - General Information source: Patient - Social History Smoking Status: Never Smoker Frequency of alcohol use: None Drug Abuse: None Lives with: Family Family History: Reviewed & Not Pertinent Patient has suicidal ideation: No Patient has homicidal ideation: No - Past Medical History Cardiac Medical History: Reports: Hx Coronary Artery Disease, Hx Hypercholesterolemia, Hx Hypertension Denies: Hx Heart Attack Pulmonary Medical History: Denies: Hx Asthma, Hx Bronchitis, Hx COPD, Hx Pneumonia Neurological Medical History: Reports: Hx Cerebrovascular Accident - 2006, With right sided weakness. Denies: Hx Seizures Endocrine Medical History: Reports: Hx Diabetes Mellitus Type 2 Renal/ Medical History: Denies: Hx Peritoneal Dialysis GI Medical History: Reports: Hx Gastroesophageal Reflux Disease Musculoskeletal Medical History: Reports Hx Arthritis - GENERALIZED, Reports Hx Musculoskeletal Deformity, Reports Hx Musculoskeletal Trauma Psychiatric Medical History: Reports: Hx Bipolar Disorder, Hx Depression Past Surgical History: Reports: Hx Cardiac Surgery - bypass, Hx Coronary Artery Bypass Graft, Hx Orthopedic Surgery - B TKA,, Hx Thyroid Surgery, Hx Vascular Surgery - Right carotid endarterectomy - Immunizations Hx Diphtheria, Pertussis, Tetanus Vaccination: Yes Hx Pneumococcal Vaccination: 05/28/15 Review of Systems - Review of Systems Constitutional: No symptoms reported EENT: See HPI Cardiovascular: See HPI Respiratory: See HPI Gastrointestinal: See HPI Genitourinary: See HPI Female Genitourinary: No symptoms reported Musculoskeletal: No symptoms reported Skin: No symptoms reported Hematologic/Lymphatic: No symptoms reported Neurological/Psychological: See HPI Physical Exam - Vital signs Vitals: Pulse Resp BP Pulse Ox 72 16 117/56 L 97 07/27/18 18:06 07/27/18 18:06 07/27/18 18:06 07/27/18 18:06 - Notes Notes: GENERAL: Alert, flat affect. No acute distress. HEAD: Normocephalic, atraumatic. EYES: Pupils equal, round, and reactive to light. Extraocular movements intact. ENT: Oral mucosa moist, tongue midline. NECK: Full range of motion. Supple. Trachea midline. LUNGS: Clear to auscultation bilaterally, no wheezes, rales, or rhonchi. No respiratory distress. HEART: Regular rate and rhythm. No murmur ABDOMEN: Soft, non-tender. Non-distended. Bowel sounds present in all 4 quadrants. EXTREMITIES: Moves all 4 extremities spontaneously. No edema, normal radial and dorsalis pedis pulses bilaterally. No cyanosis. 5 out of 5 strength in all 4 extremities. BACK: no cervical, thoracic, lumbar midline tenderness. No saddle anesthesia, normal distal neurovascular exam. NEUROLOGICAL: Alert and oriented x3. Normal speech. cranial nerves II through XII grossly intact. PSYCH: Flat affect SKIN: Warm, dry, normal turgor. Multiple well-healed scars bilateral forearms, patient states she used to self harm in the past. Course - Re-evaluation Re-evalutation: Initial orthostatic vitals were positive, 1 L of fluid was ordered at that time for patient rehydration. 07/27/18 22:16 Nurse was able to discuss patient case with the patient's daughter on the phone. States she has been dealing with orthostatic hypotension for the last couple months. States she has seen a project management specialist for same. States they are attempting to change the patient's hypertension medications. Daughter is aware that patient was not taking her medications for the last month. Daughter is also aware of patient's depression. Daughter and patient continued to deny SI or HI. Offered the patient to stay in the emergency room to talk to mental health evaluators or social work in the morning. Patient declines. 07/27/18 23:21 After treatments in the emergency room patient states she feels better. Patient continues to deny HI or SI. Repeat orthostatic vitals have improved. Discussed need to follow-up with primary care provider in the next 24-48 hours. Continue prescription medications as prescribed. 07/27/18 23:22 No leukocytosis on labs, no electrolyte abnormalities. Slight elevation in kidney function, likely due to dehydration status. Fluids given in emergency room. - Vital Signs Vital signs: Temp Pulse Resp BP Pulse Ox 97.4 F 64 16 137/65 H 98 07/28/18 00:57 07/28/18 00:57 07/28/18 00:57 07/28/18 00:57 07/28/18 00:57 - Laboratory Result Diagrams: 07/27/18 18:49 07/27/18 18:49 Laboratory results interpreted by me: 07/27/18 07/27/18 07/27/18 18:49 18:49 20:52 RBC 3.37 L Hgb 10.5 L Hct 30.7 L Seg Neutrophils % 84.0 H Lymphocytes % 8.7 L BUN 22 H Creatinine 1.32 H Est GFR ( Amer) 49 L Est GFR (Non-Af Amer) 41 L Glucose 181 H Urine Glucose (UA) 50 H Ur Leukocyte Esterase SMALL H Discharge - Discharge Clinical Impression: Orthostatic hypotension, Dehydration Condition: Stable Disposition: HOME, SELF-CARE Instructions: Dehydration ([facility]), Orthostatic Hypotension ([facility]) Additional Instructions: As we discussed you have been seen and treated in the emergency department for dehydration and orthostatic hypotension. Occasions as prescribed. Please make an appointment with your primary care provider in the next 24-48 hours. Please return to the emergency room for any other concerning symptoms. Referrals: CARL CRUZ FNP-[facility] [Primary Care Provider] - Follow up as needed
[2018-07-27 19:37] LABS: CREATINE KINASE MB < 0.22 ng/mL (<4.55); TROPONIN I < 0.012 ng/mL
[2018-07-27 19:48] LABS: INTERNATIONAL RATION (INR) 0.99; PROTHROMBIN TIME 13.5 SEC (11.4-15.4)
[2018-07-27 21:44] LABS: APPEARANCE,URINE SLIGHTLY-CLOUDY; BILIRUBIN,URINE NEGATIVE (NEGATIVE); COLOR,URINE YELLOW; GLUCOSE, URINE 50 mg/dL (NEGATIVE); KETONES,URINE NEGATIVE (NEGATIVE); LEUKOCYTE ESTERASE,URINE SMALL (NEGATIVE); NITRITE,URINE NEGATIVE (NEGATIVE); PROTEIN,URINE NEGATIVE (NEGATIVE); URINE SPECIFIC GRAVITY 1.019; UROBILINOGEN,URINE NEGATIVE mg/dL (<2.0)
[2018-07-28 01:04] VITALS: BP 137/65
--- NOTE | 2018-07-28 07:58 | EKG REPORT ---
SEVERITY:- BORDERLINE ECG - SINUS RHYTHM BORDERLINE T ABNORMALITIES, DIFFUSE LEADS : Confirmed by: Capo Butterfield MD 28-Jul-2018 07:57:56
== END 2018-07-28 01:06 | disposition home or self-care (01) ==
LOC: ER 17:57
DX: I95.1 Orthostatic hypotension (principal); E86.0 Dehydration; R42 Dizziness and giddiness; R53.1 Weakness; I25.10 Atherosclerotic heart disease of native coronary artery without angina pectoris; E78.00 Pure hypercholesterolemia, unspecified; I10 Essential (primary) hypertension; E11.9 Type 2 diabetes mellitus without complications; Z88.6 Allergy status to analgesic agent; Z95.1 Presence of aortocoronary bypass graft
CPT/HCPCS: 93005; 99284; 96360; 36415; 82553; 82550; 85025; 85610; 85730; 80053; 81001; 84484; 93010; J7030

== ENCOUNTER 2018-09-20 07:55 | Day surgery (SDC) | payer MEDICAID ==
[~2018-09-20 07:55] MED LIST changes: +CEFAZOLIN 2 GM/D5W RTU 2 GM/50 ML RTUPB IV ONE; -CEFAZOLIN 2 GM/D5W RTU 2 GM/50 ML RTUPB IV PRN; -GLYCOPYRROLATE INJ 0.4 MG/2 ML VIAL ONE; -LIDOCAINE 0.5% INJ-PF (5 MG/ML) 50 ML SDV SUBCUT PRN; -NORMAL SALINE 1000 ML 1,000 ML IV PRN; -ROCURONIUM BROMIDE INJ 50 MG/5 ML VIAL IV ONE; -SUCCINYLCHOLINE CHLORIDE INJ 200 MG/10 ML VIAL ONE
[2018-09-20 08:32] LABS: APPEARANCE,URINE CLEAR; BILIRUBIN,URINE NEGATIVE (NEGATIVE); COLOR,URINE STRAW; GLUCOSE, URINE NEGATIVE (NEGATIVE); KETONES,URINE NEGATIVE (NEGATIVE); LEUKOCYTE ESTERASE,URINE TRACE (NEGATIVE); NITRITE,URINE NEGATIVE (NEGATIVE); PROTEIN,URINE NEGATIVE (NEGATIVE); URINE SPECIFIC GRAVITY 1.006; UROBILINOGEN,URINE NEGATIVE mg/dL (<2.0)
[2018-09-20 08:39] LABS: HEMATOCRIT 31.8 % (36.0-47.0); MEAN CORPUSCULAR HEMOGLOBIN 30.9 pg (27.0-33.4); MEAN CORPUSCULAR HGB CONC 34.7 g/dL (32.0-36.0); MEAN CORPUSCULAR VOLUME 89 fl (80-97); PLATELET COUNT 257 10^3/uL (150-450); RED BLOOD COUNT 3.57 10^6/uL (3.72-5.28); RED CELL DISTRIBUTION WIDTH 13.3 % (11.5-14.0)
[2018-09-20 08:40] LABS: INTERNATIONAL RATION (INR) 0.93; PROTHROMBIN TIME 12.9 SEC (11.4-15.4)
--- NOTE | 2018-09-20 08:40 | RADIOLOGY REPORT (SQ) ---
EXAM DESCRIPTION: CHEST SINGLE VIEW COMPLETED DATE/TIME: 09/20/2018 8:29 am REASON FOR STUDY: preop COMPARISON: Two-view chest 11/13/2016, 07/16/2008 EXAM PARAMETERS: NUMBER OF VIEWS: One view. TECHNIQUE: Single frontal radiographic view of the chest acquired. RADIATION DOSE: NA LIMITATIONS: None. FINDINGS: LUNGS AND PLEURA: No opacities, masses or pneumothorax. No pleural effusion. MEDIASTINUM AND HILAR STRUCTURES: No masses. Contour normal. HEART AND VASCULAR STRUCTURES: Old sternotomy for CABG. No cardiomegaly BONES: No acute findings. HARDWARE: None in the chest. OTHER: Calcified carotid bifurcations at the upper edge of the field of view IMPRESSION: No acute findings. Old sternotomy and CABG without cardiomegaly TECHNICAL DOCUMENTATION: JOB ID: [id number] [employer]- All Rights Reserved Reading location - IP/workstation name: [email or web address]
[2018-09-20 08:46] LABS: ANION GAP 9 (5-19); BLOOD UREA NITROGEN 18 mg/dL (7-20); CALCIUM 9.9 mg/dL (8.4-10.2); CARBON DIOXIDE 28 mmol/L (22-30); CHLORIDE 99 mmol/L (98-107); GLUCOSE 117 mg/dL (75-110); POTASSIUM 4.9 mmol/L (3.6-5.0); SODIUM 136.4 mmol/L (137-145)
[2018-09-20] MEDS ORDERED: METOPROLOL SUCCINATE 25 MG TAB.SR.24H PO ONE ×2 (08:51→09:00)
[2018-09-20] MEDS ORDERED: EPINEPHRINE INJ/PF 1 MG/1 ML AMPULE ONE (09:12)
[2018-09-20] MEDS ORDERED: BUPIVACAINE HCL 0.5 % INJ/PF 30 ML SDV ONE (09:12)
[2018-09-20] MEDS ORDERED: METOCLOPRAMIDE HCL INJ/PF 10 MG/2 ML SDV ONE (10:24)
[2018-09-20] MEDS ORDERED: MIDAZOLAM 2 MG/2 ML INJ ONE (11:06)
[2018-09-20] MEDS ORDERED: FENTANYL CITRATE INJ/PF 250 MCG/5 ML AMPULE ONE (11:06)
[2018-09-20] MEDS ORDERED: FENTANYL CITRATE INJ/PF 100 MCG/2 ML AMPUL ONE ×2 (11:06→12:31)
[2018-09-20] MEDS ORDERED: PROPOFOL INJ 200 MG/20 ML VIAL IV ONE (11:07)
[2018-09-20] MEDS ORDERED: EPHEDRINE SULFATE INJ 50 MG/1 ML AMPULE ONE (11:07)
[2018-09-20] MEDS ORDERED: ONDANSETRON HCL INJ/PF 4 MG/2 ML SDV ONE ×2 (11:07→15:18)
[2018-09-20] MEDS ORDERED: DEXAMETHASONE SOD PHOSPHATE INJ 4 MG/1 ML VIAL ONE (11:07)
[2018-09-20] MEDS ORDERED: ACETAMINOPHEN 1,000 MG/100 ML RTUPB IV ONE (11:07)
[2018-09-20] MEDS ORDERED: HYDROMORPHONE HCL INJ/PF 2 MG/ML AMPULE ONE (12:31)
[2018-09-20] MEDS ORDERED: LABETALOL HCL INJ 20 MG/4 ML DISP.SYRIN IV ONE (12:34)
[2018-09-20] MEDS ORDERED: FENTANYL CITRATE INJ/PF 100 MCG/2 ML AMPUL IV PRN ×3 (13:08)
[2018-09-20] MEDS ORDERED: PROMETHAZINE HCL INJ 25 MG/1 ML VIAL IV PRN (13:08)
[2018-09-20] MEDS ORDERED: DIPHENHYDRAMINE HCL 50 MG/ML VIAL IV PRN (13:08)
[2018-09-20] MEDS ORDERED: MEPERIDINE HCL/PF INJ 25 MG/1 ML DISP.SYRIN IV PRN (13:08)
--- NOTE | 2018-09-20 14:24 | Discharge Summary ---
Discharge Summary (SDC) - Discharge Final Diagnosis: Left shoulder arthroscopic rotator cuff repair and biceps tenotomy Date of Surgery: 09/20/18 Discharge Date: 09/20/18 Condition: Good Treatment or Instructions: Patient is instructed to follow up in 10-14 days. Patient instructed to remove dressing in 4 days then can shower and apply Band- Aids as needed. Patient to wear sling for comfort but okay to remove for shower and pendulum exercises. Pendulum exercises are instructed to be done 3 times a day ideally with breakfast, lunch, dinners and showers. Patient instructed to call if there is any signs of redness or drainage fevers or chills. Prescriptions: Oxycodone HCl/Acetaminophen [Percocet 5-325 mg Tablet] 1 - 2 tab PO ASDIR PRN #30 tablet PRN Reason: Referrals: JULIAN RODRÍGUEZ PA-C [Primary Care Provider] - Discharge Diet: As Tolerated Respiratory Treatments at Home: Deep Breathing/Coughing Discharge Activity: No Driving, No Lifting/Push/Pulling, Walk Frequently Home Care Assistance: None Needed Report the Following to Your Physician Immediately: Shortness of Breath, Vomiting, Fever over 101 Degrees, Unusual Bleeding, Redness, Drainage-Yellow, Drainage-Kirby, Drainage-Green, Drainage-Foul Smelling
[2018-09-20] MEDS ORDERED: OXYCODONE-ACETAMINOPHEN 5-325 MG TABLET PO PRN ×2 (14:27)
[2018-09-20] MEDS ORDERED: SUCCINYLCHOLINE CHLORIDE INJ 200 MG/10 ML VIAL ONE (14:35)
[2018-09-20] MEDS: FENTANYL CITRATE INJ/PF 100 MCG/2 ML AMPUL ONE ×2 (14:51→14:56)
--- NOTE | 2018-09-20 15:11 | Operative Report ---
Operative Report DATE OF SURGERY: 09/20/18 PREOPERATIVE DIAGNOSIS: Left shoulder full-thickness rotator cuff tear POSTOPERATIVE DIAGNOSIS: Same plus partial tearing of the long head of the biceps OPERATION: Left shoulder arthroscopic cuff repair and biceps tenotomy SURGEON: LUCA HIGHTOWER ANESTHESIA: GA TISSUE REMOVED OR ALTERED: None COMPLICATIONS: As above ESTIMATED BLOOD LOSS: 20 mL INTRAOPERATIVE FINDINGS: As above PROCEDURE: IMPLANTS: Speed bridge kit DESCRIPTION OF PROCEDURE: Patient was brought to the operating room placed in supine position. After successfully induced and intubated the patient patient was placed in the beachchair position the head and endotracheal tube was secured appropriately. The left shoulder was prepped and draped in a normal surgical fashion. A timeout was done identifying the left shoulder as the correct site. After inflating the glenohumeral joint with sterile saline solution an 11 blade was used to establish the posterior portal. The arthroscope was introduced and return of fluid was seen showing that we successfully penetrated the glenohumeral joint. With the use of spinal needle we're able to fatmata the anterior portal and using an 11 blade able to establish anterior portal. A cannula was introduced through the anterior portal. At this point diagnostic scope was done. Patient had a full-thickness rotator cuff tear and also had partial tearing of the long head of the biceps. I proceeded to use arthroscopic scissors to the tenotomy of the biceps. Use a radiofrequency ablator and shaver to debride the synovium and the stump of the biceps on the labrum. A lateral portal was established 11 blade. 4.0mm shaver was introduced and was used to prepare the tear and the frontal bone for preparation of anchor placement. Once I was satisfied with the preparation I then redirected my scope into the subacromial space. Patient had bursitis which I also resected with the radiofrequency ablator. A percutaneous incision was then just adjacent to the acromion on the lateral aspect. Through this percutaneous hole the awl was used to prepare the hole for an anchor. [place] was percutaneously sent flushed with the bone just adjacent to the articular margin.Same steps were taken for placement of our second anchor more posteriorly. Sutures were passed through the anterior portal for proper suture management. With the use of the scorpion and I proceeded to pass the sutures through the rotator cuff tendon with proper suture management was able to pass the strands either through percutaneous hole or the anterior portal. Once I was satisfied with placement of all my sutures I then proceeded to do my arthroscopic knots. At this point the strands were used to do our lateral row. Bicomposite show out was used and the lateral aspect of the humerus was then cleaned off with a shaver and electrocautery. Once identified once I was replacement I proceeded to use my awl to do my hole. This this point the sutures were adequately tensioned and subluxed for inserted and secured securing and increasing the footprint of the rotator cuff repair. Remaining strands were cut with the arthroscopic cutter. Final pictures were taking showing my repair. At this point fluid from the shoulder was removed camera and instruments were all removed. I proceeded to close my portal sites with 3-0 nylon. Xeroform 4 x 4 dressing followed by ABDs pads and Medipore tape was applied. Patient was placed in a sling and returned to supine position where he was successfully extubated and taken to PACU in stable condition.
[2018-09-20] MEDS ORDERED: PROMETHAZINE HCL INJ 25 MG/1 ML VIAL ONE (16:21)
[2018-09-20] MEDS ORDERED: PROMETHAZINE HCL INJ 25 MG/1 ML VIAL IV ONE (17:00)
[2018-09-20 19:32] VITALS: BP 151/83
--- NOTE | 2018-09-20 21:09 | EKG REPORT ---
SEVERITY:- NORMAL ECG - SINUS RHYTHM : Confirmed by: Shannan Mccormick MD 20-Sep-2018 21:09:17
[2018-09-27] MEDS ORDERED: CEFAZOLIN 2 GM/D5W RTU 2 GM/50 ML RTUPB IV PRN (05:00)
== END 2018-09-20 19:15 | disposition home or self-care (01) ==
LOC: OROUT 07:55
PROVIDERS: ATTEND Orthopaedic Surgery
DX: M75.112 Incomplete rotator cuff tear or rupture of left shoulder, not specified as traumatic (principal); S46.112A Strain of muscle, fascia and tendon of long head of biceps, left arm, initial encounter; X58.XXXA Exposure to other specified factors, initial encounter; M75.42 Impingement syndrome of left shoulder; M25.512 Pain in left shoulder; I11.9 Hypertensive heart disease without heart failure; E11.9 Type 2 diabetes mellitus without complications; R01.1 Cardiac murmur, unspecified; E78.5 Hyperlipidemia, unspecified; Z87.891 Personal history of nicotine dependence; Z88.8 Allergy status to other drugs, medicaments and biological substances; Z96.659 Presence of unspecified artificial knee joint; Z88.5 Allergy status to narcotic agent; Z79.899 Other long term (current) drug therapy; Z79.84 Long term (current) use of oral hypoglycemic drugs; Z86.73 Personal history of transient ischemic attack (TIA), and cerebral infarction without residual deficits; Z95.1 Presence of aortocoronary bypass graft
CPT/HCPCS: 86900; 86901; 36415; 86850; 82962; 85027; 85610; 85730; 80048; 81001; 83036; 71045; 93005; 93010; 29827; 29828; C1713 ×2; J2250; J3490 ×4; J1100; J0171; J3010 ×2; J2765; J2550; J0330; J2405; J2704; J0690; J0131; 1630; J1170

== ENCOUNTER 2019-05-17 08:49 | Day surgery (SDC) | payer MEDICAID ==
[~2019-05-17 08:49] MED LIST changes: -CEFAZOLIN 2 GM/D5W RTU 2 GM/50 ML RTUPB IV ONE; +PROPOFOL INJ 200 MG/20 ML VIAL IV ONE
[2019-05-17 10:39] VITALS: BP 135/52
--- NOTE | 2019-05-17 11:49 | Operative Report ---
Operative Report DATE OF SURGERY: 05/17/19 Operative Report: The risks, benefits and alternatives of the procedure including the risk of bleeding, perforation requiring surgery have been explained to the patient in detail and informed consent has been obtained. The patient is placed in a left, lateral decubital position. Timeout was called. Propofol medication is administered. Rectal examination is done which did not reveal any masses, tears or fissures. An Olympus videoscope was introduced into the patient's rectum. The scope was then carefully advanced all the way to the cecum. The cecum was identified by the usual anatomical landmarks of the ileocecal valve as well as the appendiceal office. Photodocumentation is obtained. Scope was then sequentially pulled back via the various segments of the colon including the ascending colon, hepatic flexure, transverse colon, splenic flexure, descending colon and finally into the rectosigmoid portions of the colon. Retroflexion maneuvers performed. PREOPERATIVE DIAGNOSIS: Anemia rule out chronic GI blood loss. Nausea vomiting POSTOPERATIVE DIAGNOSIS: Descending colon polyp was removed via biopsy forceps. Internal hemorrhoids. Gastritis status post biopsy rule out Helicobacter pylori OPERATION: Colonoscopy with biopsy. EGD with biopsy SURGEON: ELBA UGALDE ANESTHESIA: LMAC TISSUE REMOVED OR ALTERED: As noted above. COMPLICATIONS: None. ESTIMATED BLOOD LOSS: None. INTRAOPERATIVE FINDINGS: As noted above. PROCEDURE: Patient tolerated the procedure well. No immediate postprocedure complications are noted. Patient is discharged in good condition. Discharge date 05/17/2019. Discharge diet: Regular. Discharge activity: Regular. 2 to 3-week follow-up to discuss findings. Patient is instructed to call the office or proceed to the emergency room should there be any further problems or questions. Wait on the pathology. 5-year surveillance colonoscopy.
== END 2019-05-17 10:44 | disposition home or self-care (01) ==
LOC: END 08:49
PROVIDERS: ATTEND Internal Medicine Gastroenterology
DX: K29.50 Unspecified chronic gastritis without bleeding (principal); D12.4 Benign neoplasm of descending colon; D64.9 Anemia, unspecified; K64.8 Other hemorrhoids
CPT/HCPCS: 43239; 45380; 82962; 88305 ×2; 00813; J2704; 813

== ENCOUNTER 2019-06-03 16:29 | Emergency (ER) | payer MEDICAID ==
--- NOTE | 2019-06-03 17:39 | ER Document Report ---
ED Medical Screen (RME) - General Chief Complaint: Flank Pain Stated Complaint: FLANK PAIN Time Seen by Provider: 06/03/19 17:38 Primary Care Provider: JULIAN RODRÍGUEZ PA-C [Primary Care Provider] - Follow up as needed Information source: Patient Notes: Patient presents complaining of right lateral side pain for the past 3 days with diarrhea. Patient denies any nausea vomiting or fever. Patient denies any urinary symptoms. I have greeted and performed a rapid initial assessment of this patient. A comprehensive ED assessment and evaluation of the patient, analysis of test results and completion of the medical decision making process will be conducted by additional ED providers. TRAVEL OUTSIDE OF THE [place] IN LAST 30 DAYS: No - Related Data Allergies/Adverse Reactions: cyclobenzaprine HCl [From Flexeril] Allergy (Intermediate, Verified 05/17/19 08:45) Nausea codeine [Codeine] Adverse Reaction (Intermediate, Verified 05/17/19 08:45) Nausea morphine [Morphine] Adverse Reaction (Intermediate, Verified 05/17/19 08:45) Nausea tramadol HCl [From Ultram] Adverse Reaction (Intermediate, Verified 05/17/19 08:45) Nausea Past Medical History - Past Medical History Cardiac Medical History: Reports: Hx Coronary Artery Disease, Hx Hypercholesterolemia, Hx Hypertension Denies: Hx Heart Attack Pulmonary Medical History: Denies: Hx Asthma, Hx Bronchitis, Hx COPD, Hx Pneumonia Neurological Medical History: Reports: Hx Cerebrovascular Accident - 2006, With right sided weakness. Denies: Hx Seizures Endocrine Medical History: Reports: Hx Diabetes Mellitus Type 2 Renal/ Medical History: Denies: Hx Peritoneal Dialysis GI Medical History: Reports: Hx Gastroesophageal Reflux Disease Musculoskeltal Medical History: Reports Hx Arthritis - GENERALIZED, Reports Hx Musculoskeletal Deformity, Reports Hx Musculoskeletal Trauma Psychiatric Medical History: Reports: Hx Bipolar Disorder, Hx Depression Past Surgical History: Reports: Hx Cardiac Surgery - bypass, Hx Coronary Artery Bypass Graft, Hx Orthopedic Surgery - B TKA,, Hx Thyroid Surgery, Hx Vascular Surgery - Right carotid endarterectomy - Immunizations Hx Diphtheria, Pertussis, Tetanus Vaccination: Yes Physical Exam - Vital signs Vitals: Temp Pulse Resp BP Pulse Ox 98.3 F 79 16 152/62 H 98 06/03/19 17:11 06/03/19 17:11 06/03/19 17:11 06/03/19 17:11 06/03/19 17:11 - General General appearance: Appears well, Alert Notes: Right lateral side tenderness Course - Vital Signs Vital signs: Temp Pulse Resp BP Pulse Ox 98.3 F 79 16 152/62 H 98 06/03/19 17:11 06/03/19 17:11 06/03/19 17:11 06/03/19 17:11 06/03/19 17:11 Doctor's Discharge - Discharge Referrals: JULIAN RODRÍGUEZ PA-C [Primary Care Provider] - Follow up as needed
[2019-06-03 19:24] LABS: ABSOLUTE EOSINOPHILS # (AUTO) 0.1 10^3/uL (0.0-0.6); ABSOLUTE LYMPHOCYTES (AUTO) 1.3 10^3/uL (0.5-4.7); ABSOLUTE MONOCYTES (AUTO) 0.5 10^3/uL (0.1-1.4); ABSOLUTE NEUT (AUTO) 7.7 10^3/uL (1.7-8.2); BASOPHILS % (AUTO) 0.4 % (0-2); EOSINOPHILS % (AUTO) 0.9 % (0-6); HEMATOCRIT 32.8 % (36.0-47.0); HEMOGLOBIN 11.3 g/dL (12.0-15.5); LYMPHOCYTES % (AUTO) 13.5 % (13-45); MEAN CORPUSCULAR HEMOGLOBIN 30.4 pg (27.0-33.4); MEAN CORPUSCULAR HGB CONC 34.4 g/dL (32.0-36.0); MEAN CORPUSCULAR VOLUME 88 fl (80-97); MONOCYTES % (AUTO) 5.4 % (3-13); PLATELET COUNT 303 10^3/uL (150-450); RED BLOOD COUNT 3.71 10^6/uL (3.72-5.28); RED CELL DISTRIBUTION WIDTH 13.3 % (11.5-14.0); SEGMENTED NEUTROPHILS % (AUTO) 79.8 % (42-78); TOTAL CELLS COUNTED % (AUTO) 100 %; WHITE BLOOD COUNT 9.6 10^3/uL (4.0-10.5)
[2019-06-03 19:30] LABS: APPEARANCE,URINE CLOUDY; BILIRUBIN,URINE NEGATIVE (NEGATIVE); COLOR,URINE YELLOW; GLUCOSE, URINE NEGATIVE (NEGATIVE); KETONES,URINE TRACE mg/dL (NEGATIVE); LEUKOCYTE ESTERASE,URINE TRACE (NEGATIVE); NITRITE,URINE NEGATIVE (NEGATIVE); PROTEIN,URINE 30 mg/dL (NEGATIVE); URINE SPECIFIC GRAVITY 1.011; UROBILINOGEN,URINE NEGATIVE mg/dL (<2.0)
[2019-06-03 19:51] LABS: ALBUMIN 4.3 g/dL (3.5-5.0); ALKALINE PHOSPHATASE 78 U/L (38-126); ANION GAP 9 (5-19); ASPARTATE AMINO TRANSFERASE 28 U/L (14-36); BILIRUBIN,DIRECT 0.1 mg/dL (0.0-0.4); BILIRUBIN,TOTAL 0.4 mg/dL (0.2-1.3); BLOOD UREA NITROGEN 10 mg/dL (7-20); CALCIUM 9.8 mg/dL (8.4-10.2); CARBON DIOXIDE 29 mmol/L (22-30); CHLORIDE 103 mmol/L (98-107); GLUCOSE 129 mg/dL (75-110); POTASSIUM 3.8 mmol/L (3.6-5.0); TOTAL PROTEIN 7.7 g/dL (6.3-8.2)
[2019-06-03] MEDS ORDERED: ONDANSETRON 4 MG TAB.RAPDIS PO ONE (20:43)
[2019-06-03] MEDS ORDERED: OXYCODONE-ACETAMINOPHEN 5-325 MG TABLET PO ONE (21:04)
--- NOTE | 2019-06-03 21:10 | ER Document Report ---
ED GI/ - General Chief Complaint: Flank Pain Stated Complaint: FLANK PAIN Time Seen by Provider: 06/03/19 17:38 Primary Care Provider: JULIAN RODRÍGUEZ PA-C [Primary Care Provider] - Follow up tomorrow Mode of Arrival: Wheelchair Information source: Patient Notes: 64-year-old female presents to ED for complaint of right flank pain with nausea no vomiting. Patient was seen in the pit area blood work and urine was done. Patient has hematuria. Patient has been ordered Percocet for pain and CT abdomen pelvis to rule out a kidney stone. Daughter who is at bedside states she did have an x-ray one time and it did show that she had a stone at that time both in the kidney and the gallbladder. Patient states she is not nauseated at this time but she is having pain. TRAVEL OUTSIDE OF THE [place] IN LAST 30 DAYS: No - HPI Patient complains to provider of: Flank pain, Hematuria, Other - Nausea Onset: Other - 3 days Timing/Duration: Intermittent Quality of pain: Sharp, Throbbing Pain Level: 3 Location: Right flank Vaginal bleeding (Compared to normal period): None Associated symptoms: Nausea, Other - Flank pain Exacerbated by: Movement, Walking Relieved by: Denies Similar symptoms previously: Yes Recently seen / treated by doctor: No - Related Data Allergies/Adverse Reactions: cyclobenzaprine HCl [From Flexeril] Allergy (Intermediate, Verified 05/17/19 08:45) Nausea codeine [Codeine] Adverse Reaction (Intermediate, Verified 05/17/19 08:45) Nausea morphine [Morphine] Adverse Reaction (Intermediate, Verified 05/17/19 08:45) Nausea tramadol HCl [From Ultram] Adverse Reaction (Intermediate, Verified 05/17/19 08:45) Nausea Past Medical History - General Information source: Patient - Social History Smoking Status: Never Smoker Frequency of alcohol use: None Drug Abuse: None Lives with: Family Family History: Reviewed & Not Pertinent Patient has suicidal ideation: No Patient has homicidal ideation: No - Past Medical History Cardiac Medical History: Reports: Hx Coronary Artery Disease, Hx Hypercholesterolemia, Hx Hypertension Denies: Hx Heart Attack Pulmonary Medical History: Reports: None EENT Medical History: Reports: None Neurological Medical History: Reports: Hx Cerebrovascular Accident - 2006, With right sided weakness. Denies: Hx Seizures Endocrine Medical History: Reports: Hx Diabetes Mellitus Type 2 Renal/ Medical History: Reports: Hx Kidney Stones Malignancy Medical History: Reports: None GI Medical History: Reports: Hx Gastroesophageal Reflux Disease Musculoskeletal Medical History: Reports Hx Arthritis - GENERALIZED, Reports Hx Musculoskeletal Deformity, Reports Hx Musculoskeletal Trauma Skin Medical History: Reports None Psychiatric Medical History: Reports: Hx Bipolar Disorder, Hx Depression Traumatic Medical History: Reports: None Infectious Medical History: Reports: None Past Surgical History: Reports: Hx Cardiac Surgery - bypass, Hx Coronary Artery Bypass Graft, Hx Orthopedic Surgery - Bilateral knee replacement bilateral rotator cuff repair, Hx Thyroid Surgery, Hx Vascular Surgery - Right carotid endarterectomy, Other - Cataracts - Immunizations Hx Diphtheria, Pertussis, Tetanus Vaccination: Yes Hx Pneumococcal Vaccination: 05/28/15 Review of Systems - Review of Systems Constitutional: No symptoms reported EENT: No symptoms reported Cardiovascular: No symptoms reported Respiratory: No symptoms reported Gastrointestinal: No symptoms reported Genitourinary: Flank pain, Hematuria Female Genitourinary: No symptoms reported Musculoskeletal: No symptoms reported Skin: No symptoms reported Hematologic/Lymphatic: No symptoms reported Neurological/Psychological: No symptoms reported -: Yes All other systems reviewed and negative Physical Exam - Vital signs Vitals: Temp Pulse Resp BP Pulse Ox 98.3 F 79 16 152/62 H 98 06/03/19 17:11 06/03/19 17:11 06/03/19 17:11 06/03/19 17:11 06/03/19 17:11 Interpretation: Normal - General General appearance: Appears well, Alert - HEENT Head: Normocephalic, Atraumatic Eyes: Normal Pupils: PERRL - Respiratory Respiratory status: No respiratory distress Chest status: Nontender Breath sounds: Normal Chest palpation: Normal - Cardiovascular Rhythm: Regular Heart sounds: Normal auscultation Murmur: No - Abdominal Inspection: Normal Distension: No distension Bowel sounds: Normal Tenderness: Tender Organomegaly: No organomegaly - Back Back: Normal, CVA tenderness - Right flank - Extremities General upper extremity: Normal inspection, Nontender, Normal color, Normal ROM, Normal temperature General lower extremity: Normal inspection, Nontender, Normal color, Normal ROM, Normal temperature, Normal weight bearing. No: Major's sign - Neurological Neuro grossly intact: Yes Cognition: Normal Orientation: AAOx4 Skillman Coma Scale Eye Opening: Spontaneous Terry Coma Scale Verbal: Oriented Terry Coma Scale Motor: Obeys Commands Terry Coma Scale Total: 15 Speech: Normal Motor strength normal: LUE, RUE, LLE, RLE Sensory: Normal - Psychological Associated symptoms: Normal affect, Normal mood - Skin Skin Temperature: Warm Skin Moisture: Dry Skin Color: Normal Course - Re-evaluation Re-evalutation: 06/04/19 03:[address] and lab results with patient. Written report of CT and lab results given to patient. Instructed patient and family to please follow-up with primary care doctor and possible urologist that she does not pass the stone concern. Patient was treated with narcotics nausea medicine and Flomax. She was instructed to please follow-up promptly. Patient verbalized understanding and agreement with treatment plan and patient was discharged home - Vital Signs Vital signs: Temp Pulse Resp BP Pulse Ox 97.3 F 70 16 153/67 H 100 06/03/19 22:40 06/03/19 22:40 06/03/19 17:11 06/03/19 22:40 06/03/19 22:40 - Laboratory Result Diagrams: 06/03/19 19:05 06/03/19 19:05 Laboratory results interpreted by me: 06/03/19 06/03/19 06/03/19 19:05 19:05 19:05 RBC 3.71 L Hgb 11.3 L Hct 32.8 L Seg Neutrophils % 79.8 H Est GFR (MDRD) Non-Af 59 L Glucose 129 H Urine Protein 30 H Urine Ketones TRACE H Urine Blood LARGE H Ur Leukocyte Esterase TRACE H - Diagnostic Test Radiology reviewed: Image reviewed, Reports reviewed Discharge - Discharge Clinical Impression: Right ureteral stone Condition: Stable Disposition: HOME, SELF-CARE Additional Instructions: KIDNEY STONE: You are passing or have passed a kidney stone. These stones are usually due to increased calcium or uric acid concentrations in your urine. Stones within the kidney itself are not painful. The pain occurs as the stone leaves the kidney to pass down the long tube, called the ureter, leading to the bladder. If the stone is small, it will usually pass by itself. Most patients can pass the stone at home. You will usually receive medications for pain, nausea or vomiting, and sometimes a medication to assist in passing the kidney stone. However, if the pain is very severe or if vomiting prevents you from taking oral pain medications, you may need to return for further treatment. Drink three or four quarts of fluids per day. You will be given pain medication (if needed) and urine strainers. Strain all your urine to see if the stone passes. If your doctor has asked you to bring the stone in for analysis, return with the stone once it has passed. Return if pain or vomiting become severe, if you develop a high fever, if you are unable to pass your urine, or if other unusual symptoms occur. ANTINAUSEA MEDICATION: You have been given a medication to suppress nausea and vomiting. This type of medication can be given as a shot, pill, or suppository. It will usually last for many hours. Pills and shots usually last six to eight hours, suppositories last about 12 hours. For the typical illness, only one or two doses of the medication may be necessary. Mild lightheadedness may occur. This type of medicine can cause drowsiness. Do not drive or operate dangerous machinery while under its i nfluence. Do not mix with alcohol. See your doctor at once if you have muscle spasms or tightness, or uncontrollable motions (particularly of the neck, mouth, or jaw). Persistent vomiting or severe lightheadedness should also be evaluated by the physician. ORAL NARCOTIC MEDICATION: You have been given a prescription for pain control. This medication is a narcotic. It's best taken with food, as nausea can result if taken on an empty stomach. Don't operate machinery or drive within six hours of taking this medication. Do not combine this medicine with alcohol, or with any medication which can cause sedation (such as cold tablets or sleeping pills) unless you get permission from the physician. Narcotics tend to cause constipation. If possible, drink plenty of fluids and eat a diet high in fiber and fruits. Please be aware that prescription narcotics also have the potential for abuse. People become addicted to these medications because of the general sense of wellbeing that they induce. This feeling along with a significant reduction in tension, anxiety, and aggression provides a stimulating seductive quality to these drugs. Once your pain is under control, we encourage you to discard your unused narcotics. FLOMAX (tamsulosin): Flomax is a medicine that shrinks the prostate gland. It helps relieve symptoms of benign prostatic hypertrophy, such as frequent urination, weak stream, and inadequate emptying. It has been shown to dilate the ureter (tube leading from the kidney to the bladder) and help in passing kidney stones Flomax usually causes no side effects. You may notice slight tiredness and dizziness for a few days. Some patients develop nasal congestion. Rarely, impotence can occur. If the symptoms are bothersome and don't improve with continued use, call your doctor. Contact your doctor or return if you have fainting spells, severe weakness or dizziness, shortness of breath, or rash. Sulfa Medications The antibiotic you have received is a member of the sulfa family. These antibiotics are commonly used for eye, ear, lung, or urinary infections. Sulfa antibiotics are best taken on an empty stomach. Extra glasses of water help the kidney process the antibiotic. Sulfas are not recommended for infants under two months, or for women near the end of . Occasional side effects can include nausea or diarrhea. Stop the medication and notify your doctor at once if you develop any skin rash, bruising, jaundice (yellow color of the skin), itching, swelling, joint pain, faintness, or shortness of breath, or if you note any other new or unusual symptoms. FOLLOW-UP CARE: If you have been referred to a physician for follow-up care, call the [facility] office for an appointment as you were instructed or within the next two days. If you experience worsening or a significant change in your symptoms, notify the physician immediately or return to the Emergency Department at any time for re-evaluation. Prescriptions: Ondansetron [Zofran Odt 4 mg Tablet] 4 mg PO Q4HP PRN #14 tab.rapdis PRN Reason: Oxycodone HCl/Acetaminophen [Percocet 5-325 mg Tablet] 1 tab PO Q6HP PRN #7 tab PRN Reason: Sulfamethoxazole/Trimethoprim [Bactrim Ds Tablet] 1 each PO BID #20 tablet Tamsulosin HCl [Flomax] 0.4 mg PO DAILY #14 cap.er.24h Forms: Elevated Blood Pressure Referrals: JULIAN RODRÍGUEZ PA-C [Primary Care Provider] - Follow up tomorrow
--- NOTE | 2019-06-03 21:58 | RADIOLOGY REPORT (SQ) ---
CT ABDOMEN PELVIS WITHOUT IV CONTRAST EXAM DATE: 06/03/2019 9:03 PM CDT HISTORY: Right flank pain. COMPARISON: 06/25/2017 TECHNIQUE: CT scan of the abdomen and pelvis was performed without IV contrast. This exam was performed according to our departmental dose-optimization program, which includes automated exposure control, adjustment of the mA and/or kV according to patient size and/or use of iterative reconstruction technique. FINDINGS: The lung bases are clear. No pleural or pericardial effusions. Gallstones are present. The liver, spleen, pancreas, adrenal glands, and left kidney are normal. There is a 5 mm obstructing stone in the right UVJ with right-sided inflammatory changes and mild right hydroureter and hydronephrosis. The uterus and ovaries are unremarkable. No small bowel obstruction. The appendix is not visualized. No evidence of acute diverticulitis. No adenopathy, free fluid, or free air is identified. The aorta is normal caliber and contains atherosclerotic calcifications. There are mild degenerative changes of the spine. IMPRESSION: 5 mm obstructing stone at the right UVJ with right-sided inflammatory symptoms and hydroureteronephrosis.
[2019-06-03 22:40] VITALS: BP 153/67
[2019-06-03] MEDS ORDERED: TAMSULOSIN HCL 0.4 MG CAP.SR.24H PO ONE (22:40)
[2019-06-03] MEDS ORDERED: SULFAMETHOXAZOLE/TRIMETHOPRIM 800-160 MG TABLET PO ONE (22:40)
== END 2019-06-03 22:56 | disposition home or self-care (01) ==
LOC: ER 16:29
DX: N20.1 Calculus of ureter (principal); R10.9 Unspecified abdominal pain; R11.0 Nausea; R31.9 Hematuria, unspecified; I25.10 Atherosclerotic heart disease of native coronary artery without angina pectoris; I10 Essential (primary) hypertension; E11.9 Type 2 diabetes mellitus without complications
CPT/HCPCS: 99284; 36415; 83690; 85025; 80053; 81001; 74176; S0119; J3490 ×2

== ENCOUNTER → 2019-09-10 | Outpatient (CLI) | payer MEDICAID ==
--- NOTE | 2019-09-11 11:47 | WOMENS IMAGING REPORT ---
EXAM DESCRIPTION: 3D SCREENING MAMMO BILAT COMPLETED DATE/TIME: 09/10/2019 11:08 am REASON FOR STUDY: Z12.31 SCREENING MAMMO Z12.31 ENCNTR SCREEN MAMMOGRAM FOR MALIGNANT NEOPLASM OF B RE COMPARISON: 2017 EXAM PARAMETERS: Views: Standard craniocaudal and mediolateral oblique views of each breast recorded using digital acquisition and breast tomosynthesis. Read with the assistance of CAD. 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 FINDINGS: No suspicious masses, suspicious calcifications or architectural distortion. No areas of c oncern. IMPRESSION: NEGATIVE MAMMOGRAM. BIRADS 1. BREAST DENSITY: b. There are scattered areas of fibroglandular density. BIRAD: ASSESSMENT: 1 NEGATIVE RECOMMENDATION: ROUTINE SCREENING Please continue yearly bilateral screening mammography/tomosynthesis in August 2020 COMMENT: The patient has been notified of the results by letter per MQSA requirements. Additional no tification policies are in place for contacting patient with suspicious or incomplete findings. Quality ID #[id number]: The [employer] recommends an annual screening mammogram for women aged 40 years or over. This facility utilizes a reminder system to ensure that all patients receive reminder letters, and/or direct phone calls for appointments. This includes reminders for routine scr eening mammograms, diagnostic mammograms, or other Breast Imaging Interventions when appropriate. Th is patient will be placed in the appropriate reminder system. TECHNICAL DOCUMENTATION: FINDING NUMBER: (1) ASSESSMENT: (1) JOB ID: [id number] [employer]- All Rights Reserved Reading location - IP/workstation name: [email or web address]
== END ==
LOC: WI 10:40
PROVIDERS: ATTEND Physician Assistant
DX: Z12.31 Encounter for screening mammogram for malignant neoplasm of breast (principal)
CPT/HCPCS: 77063; 77067

== ENCOUNTER 2020-02-18 11:01 | Emergency (ER) | payer MEDICAID ==
[2020-02-18 13:30] LABS: ABSOLUTE EOSINOPHILS # (AUTO) 0.1 10^3/uL (0.0-0.6); ABSOLUTE LYMPHOCYTES (AUTO) 1.1 10^3/uL (0.5-4.7); ABSOLUTE MONOCYTES (AUTO) 0.5 10^3/uL (0.1-1.4); BASOPHILS % (AUTO) 0.5 % (0-2); EOSINOPHILS % (AUTO) 1.7 % (0-6); HEMOGLOBIN 9.6 g/dL (12.0-15.5); LYMPHOCYTES % (AUTO) 14.1 % (13-45); MEAN CORPUSCULAR HEMOGLOBIN 31.1 pg (27.0-33.4); MEAN CORPUSCULAR HGB CONC 34.2 g/dL (32.0-36.0); MEAN CORPUSCULAR VOLUME 91 fl (80-97); MONOCYTES % (AUTO) 6.8 % (3-13); PLATELET COUNT 206 10^3/uL (150-450); RED BLOOD COUNT 3.09 10^6/uL (3.72-5.28); RED CELL DISTRIBUTION WIDTH 13.4 % (11.5-14.0); SEGMENTED NEUTROPHILS % (AUTO) 76.9 % (42-78); TOTAL CELLS COUNTED % (AUTO) 100 %; WHITE BLOOD COUNT 7.7 10^3/uL (4.0-10.5)
[2020-02-18] MEDS ORDERED: ACETAMINOPHEN 325 MG TABLET PO ONE (13:51)
[2020-02-18 13:52] LABS: ALBUMIN 4.2 g/dL (3.5-5.0); ALKALINE PHOSPHATASE 70 U/L (38-126); ANION GAP 6 (5-19); ASPARTATE AMINO TRANSFERASE 27 U/L (14-36); BILIRUBIN,TOTAL 0.5 mg/dL (0.2-1.3); BLOOD UREA NITROGEN 25 mg/dL (7-20); CALCIUM 9.4 mg/dL (8.4-10.2); CARBON DIOXIDE 29 mmol/L (22-30); CHLORIDE 103 mmol/L (98-107); GLUCOSE 100 mg/dL (75-110); POTASSIUM 4.9 mmol/L (3.6-5.0); TOTAL PROTEIN 7.2 g/dL (6.3-8.2)
--- NOTE | 2020-02-18 13:52 | ER Document Report ---
ED Dizziness/Weakness - General Chief Complaint: Cough Stated Complaint: COUGH,SHORTNESS OF BREATH,FEVERISH Time Seen by Provider: 02/18/20 13:14 Mode of Arrival: Ambulatory Information source: Patient Notes: 65-year-old female past medical history significant for hypertension, hyperlipidemia, CVA, CABG, diabetes presents to the emergency room stating that she "just feels fatigued and weak" intermittent cough for several days. Diarrhea on Monday which is since resolved. Some shortness of breath but denies chest pain. No recent travel. No COVID-19 exposure. Also complaining of some left upper arm pain for the past 2 days no trauma no injury. Shoulder surgery 12/14. No other ill contacts. TRAVEL OUTSIDE OF THE [place] IN LAST 30 DAYS: No - Related Data Allergies/Adverse Reactions: cyclobenzaprine HCl [From Flexeril] Allergy (Intermediate, Verified 05/17/19 08:45) Nausea codeine [Codeine] Adverse Reaction (Intermediate, Verified 05/17/19 08:45) Nausea morphine [Morphine] Adverse Reaction (Intermediate, Verified 05/17/19 08:45) Nausea tramadol HCl [From Ultram] Adverse Reaction (Intermediate, Verified 05/17/19 08:45) Nausea Home Medications: plavix pt unable to recall the rest Past Medical History - General Information source: Patient - Social History Smoking Status: Former Smoker Frequency of alcohol use: None Drug Abuse: None Family History: Reviewed & Not Pertinent Patient has homicidal ideation: No - Past Medical History Cardiac Medical History: Reports: Hx Coronary Artery Disease, Hx Hypercholesterolemia, Hx Hypertension Denies: Hx Heart Attack Pulmonary Medical History: Denies: Hx Asthma, Hx Bronchitis, Hx COPD, Hx Pneumonia Neurological Medical History: Reports: Hx Cerebrovascular Accident - 2006, With right sided weakness. Denies: Hx Seizures Endocrine Medical History: Reports: Hx Diabetes Mellitus Type 2 Renal/ Medical History: Reports: Hx Kidney Stones. Denies: Hx Peritoneal Dialysis GI Medical History: Reports: Hx Gastroesophageal Reflux Disease Musculoskeletal Medical History: Reports Hx Arthritis - GENERALIZED, Reports Hx Musculoskeletal Deformity, Reports Hx Musculoskeletal Trauma Psychiatric Medical History: Reports: Hx Bipolar Disorder, Hx Depression Past Surgical History: Reports: Hx Cardiac Surgery - bypass, Hx Coronary Artery Bypass Graft, Hx Orthopedic Surgery - Bilateral knee replacement bilateral rotator cuff repair, Hx Thyroid Surgery, Hx Vascular Surgery - Right carotid endarterectomy, Other - Cataracts - Immunizations Hx Diphtheria, Pertussis, Tetanus Vaccination: Yes Hx Pneumococcal Vaccination: 05/28/15 Review of Systems - Review of Systems Constitutional: No symptoms reported Cardiovascular: No symptoms reported Respiratory: Cough, Short of breath Gastrointestinal: No symptoms reported Genitourinary: No symptoms reported Musculoskeletal: Joint pain Skin: No symptoms reported Neurological/Psychological: No symptoms reported -: Yes All other systems reviewed and negative Physical Exam - Vital signs Vitals: Temp Pulse Resp BP Pulse Ox 99.1 F 68 16 121/50 L 100 02/18/20 11:34 02/18/20 11:34 02/18/20 11:34 02/18/20 11:34 02/18/20 11:34 - General General appearance: Appears well, Alert In distress: Mild - Respiratory Respiratory status: No respiratory distress Chest status: Nontender Breath sounds: Normal Chest palpation: Normal - Cardiovascular Rhythm: Regular Heart sounds: Normal auscultation Murmur: No - Rectal Tenderness: No Stool: Heme negative Hemorrhoids: None - Extremities General upper extremity: Normal inspection Shoulder: Nontender - Nontender to palpation. Painful range of motion with abduction and adduction of the left shoulder. No obvious deformity noted. - Neurological Neuro grossly intact: Yes Cognition: Normal Orientation: AAOx4 Terry Coma Scale Eye Opening: Spontaneous Mcclure Coma Scale Verbal: Oriented Mcclure Coma Scale Motor: Obeys Commands Terry Coma Scale Total: 15 Speech: Normal Motor strength normal: LUE, RUE, LLE, RLE Sensory: Normal - Skin Skin Temperature: Warm Skin Moisture: Dry Skin Color: Normal Course - Re-evaluation Re-evalutation: 02/18/20 16:28 Patient is resting comfortably she is afebrile, nontoxic-appearing, no acute distress at this time. Discussed lab findings with patient. No history of kidney failure. Counseled on need to drink plenty of fluids and her labs rechecked by her primary care physician as soon as possible. States she has a history of anemia. She was heme-negative on exam. Denies any other bleeding. Left shoulder pain has resolved. Reviewed all test results with patient. Counseled on need take antibiotics as prescribed. Take Tylenol and or Motrin as needed for her shoulder pain. Follow-up with her primary care physician if not improving in 2 to 3 days. Patient was given strict return to the emergency room guidelines. Return for any new or worsening symptoms. All questions were answered. Patient verbalized understanding and agrees with plan of care. 02/18/20 16:38 - Vital Signs Vital signs: Temp Pulse Resp BP Pulse Ox 99.1 F 68 16 121/50 L 100 02/18/20 11:34 02/18/20 11:34 02/18/20 11:34 02/18/20 11:34 02/18/20 11:34 - Laboratory Result Diagrams: 02/18/20 12:18 02/18/20 12:18 Laboratory results interpreted by me: 02/18/20 02/18/20 02/18/20 12:18 12:18 15:15 RBC 3.09 L Hgb 9.6 L Hct 28.0 L BUN 25 H Creatinine 1.29 H Est GFR ( Amer) 50 L Est GFR (MDRD) Non-Af 42 L Urine Ketones TRACE H Urine Nitrite POSITIVE H Ur Leukocyte Esterase LARGE H - Diagnostic Test Radiology reviewed: Reports reviewed - EKG Interpretation by Me Additional EKG results interpreted by me: 02/18/20 13:49 EKG was interpreted by ED physician Dr. Seay Normal sinus rhythm No acute STEMI Discharge - Discharge Clinical Impression: Renal insufficiency Fatigue Qualifiers: Fatigue type: unspecified Qualified Code(s): R53.83 - Other fatigue UTI (urinary tract infection) Qualifiers: Urinary tract infection type: site unspecified Hematuria presence: without hematuria Qualified Code(s): N39.0 - Urinary tract infection, site not specified Condition: Stable Disposition: HOME, SELF-CARE Instructions: Nitrofurantoin ([facility]), Urinary Tract Infection ([facility]), Anemia ([facility]), Kidney Failure ([facility]) Additional Instructions: Take antibiotics as prescribed. Drink plenty of water. You need to follow-up with your primary care physician for further evaluation of your anemia and your elevated kidney function results. Return for any new or worsening symptoms. Prescriptions: Nitrofurantoin Monohyd/M-Cryst [Macrobid 100 mg Capsule] 100 mg PO BID #14 cap
--- NOTE | 2020-02-18 14:38 | RADIOLOGY REPORT (SQ) ---
EXAM DESCRIPTION: CHEST SINGLE VIEW IMAGES COMPLETED DATE/TIME: 02/18/2020 2:19 pm REASON FOR STUDY: cough COMPARISON: AP view of the chest from 09/20/2018. EXAM PARAMETERS: NUMBER OF VIEWS: One view. TECHNIQUE: An AP view of the chest was obtained. RADIATION DOSE: NA LIMITATIONS: None. FINDINGS: LUNGS AND PLEURA: No consolidation, pleural effusion or pneumothorax. MEDIASTINUM AND HILAR STRUCTURES: No mediastinal or hilar contour abnormality. HEART AND VASCULAR STRUCTURES: The cardiac silhouette and pulmonary vasculature are within normal esqueda its. BONES: No acute findings. HARDWARE: Status post median sternotomy and CABG. OTHER: No other finding. IMPRESSION: No acute cardiopulmonary process. TECHNICAL DOCUMENTATION: JOB ID: [id number] [employer]- All Rights Reserved Reading location - IP/workstation name: [email or web address]
[2020-02-18 15:32] LABS: AMORPHOUS SEDIMENT,URINE TRACE /HPF; APPEARANCE,URINE CLOUDY; BILIRUBIN,URINE NEGATIVE (NEGATIVE); COLOR,URINE YELLOW; GLUCOSE, URINE NEGATIVE (NEGATIVE); KETONES,URINE TRACE mg/dL (NEGATIVE); LEUKOCYTE ESTERASE,URINE LARGE (NEGATIVE); NITRITE,URINE POSITIVE (NEGATIVE); PROTEIN,URINE NEGATIVE (NEGATIVE); URINE SPECIFIC GRAVITY 1.014; UROBILINOGEN,URINE NEGATIVE mg/dL (<2.0)
[2020-02-18 16:59] VITALS: BP 140/59
--- NOTE | 2020-02-19 13:19 | EKG REPORT ---
SEVERITY:- NORMAL ECG - SINUS RHYTHM : Confirmed by: Олег Potts 19-Feb-2020 13:19:02
== END 2020-02-18 16:59 | disposition home or self-care (01) ==
LOC: ER 11:01
DX: Z20.828 Contact with and (suspected) exposure to other viral communicable diseases (principal); N28.9 Disorder of kidney and ureter, unspecified; N39.0 Urinary tract infection, site not specified; R53.83 Other fatigue; R05 Cough; R06.02 Shortness of breath; R50.9 Fever, unspecified; R53.1 Weakness; R19.7 Diarrhea, unspecified; M79.602 Pain in left arm; I10 Essential (primary) hypertension; E78.5 Hyperlipidemia, unspecified; Z86.73 Personal history of transient ischemic attack (TIA), and cerebral infarction without residual deficits; E11.9 Type 2 diabetes mellitus without complications; Z98.890 Other specified postprocedural states; Z88.8 Allergy status to other drugs, medicaments and biological substances; Z79.899 Other long term (current) drug therapy; Z79.02 Long term (current) use of antithrombotics/antiplatelets; I25.10 Atherosclerotic heart disease of native coronary artery without angina pectoris
CPT/HCPCS: 93005; 99284; 36415; 85025; 82270; 87635; 80053; 81001; 84484; 71045; 93010; J3490; C9803

== ENCOUNTER → 2020-03-16 | Outpatient (CLI) | payer MEDICAID ==
[2020-03-16 15:55] LABS: ABSOLUTE EOSINOPHILS # (AUTO) 0.3 10^3/uL (0.0-0.6); ABSOLUTE LYMPHOCYTES (AUTO) 1.7 10^3/uL (0.5-4.7); ABSOLUTE MONOCYTES (AUTO) 0.4 10^3/uL (0.1-1.4); ABSOLUTE NEUT (AUTO) 4.7 10^3/uL (1.7-8.2); BASOPHILS % (AUTO) 0.5 % (0-2); EOSINOPHILS % (AUTO) 4.5 % (0-6); HEMATOCRIT 30.4 % (36.0-47.0); HEMOGLOBIN 10.5 g/dL (12.0-15.5); LYMPHOCYTES % (AUTO) 23.6 % (13-45); MEAN CORPUSCULAR HEMOGLOBIN 30.9 pg (27.0-33.4); MEAN CORPUSCULAR HGB CONC 34.4 g/dL (32.0-36.0); MEAN CORPUSCULAR VOLUME 90 fl (80-97); MONOCYTES % (AUTO) 5.4 % (3-13); PLATELET COUNT 253 10^3/uL (150-450); RED BLOOD COUNT 3.38 10^6/uL (3.72-5.28); RED CELL DISTRIBUTION WIDTH 13.6 % (11.5-14.0); TOTAL CELLS COUNTED % (AUTO) 100 %; WHITE BLOOD COUNT 7.2 10^3/uL (4.0-10.5)
[2020-03-16 16:12] LABS: APPEARANCE,URINE SLIGHTLY-CLOUDY; BILIRUBIN,URINE NEGATIVE (NEGATIVE); COLOR,URINE YELLOW; GLUCOSE, URINE NEGATIVE (NEGATIVE); KETONES,URINE 20 mg/dL (NEGATIVE); LEUKOCYTE ESTERASE,URINE TRACE (NEGATIVE); NITRITE,URINE NEGATIVE (NEGATIVE); PROTEIN,URINE NEGATIVE (NEGATIVE); URINE SPECIFIC GRAVITY 1.025
[2020-03-16 16:14] LABS: ALBUMIN 4.6 g/dL (3.5-5.0); ANION GAP 7 (5-19); BLOOD UREA NITROGEN 21 mg/dL (7-20); CALCIUM 9.4 mg/dL (8.4-10.2); CARBON DIOXIDE 27 mmol/L (22-30); CHLORIDE 106 mmol/L (98-107); GLUCOSE 120 mg/dL (75-110); PHOSPHORUS 3.3 mg/dL (2.5-4.5); POTASSIUM 4.1 mmol/L (3.6-5.0)
== END ==
LOC: OD 15:15
PROVIDERS: ATTEND Internal Medicine Nephrology
DX: N17.9 Acute kidney failure, unspecified (principal)
CPT/HCPCS: 36415; 80069; 81001; 85025